=== PATIENT | female | born 1985 | race Caucasian/White ===

== ENCOUNTER 2016-11-15 23:15 | Emergency (ER) | payer MEDICAID ==
[2016-11-16 01:18] VITALS: BP 115/79
== END 2016-11-16 01:18 | disposition home or self-care (01) ==
LOC: ED 23:15
DX: S39.012A Strain of muscle, fascia and tendon of lower back, initial encounter (principal); N39.0 Urinary tract infection, site not specified; Z88.0 Allergy status to penicillin; Z88.1 Allergy status to other antibiotic agents; X58.XXXA Exposure to other specified factors, initial encounter; Y93.89 Activity, other specified; Y99.8 Other external cause status; Y92.89 Other specified places as the place of occurrence of the external cause
CPT/HCPCS: 82962; J1885

== ENCOUNTER 2017-01-15 23:00 | Emergency (ER) | payer MEDICAID ==
[2017-01-16 00:03] LABS: microscopic required? YES; urine erythrocyte NEGATIVE (NEGATIVE)
[2017-01-16 00:03] LABS: BASOPHIL % 0.5 % (0-2); PLATELET COUNT 339 x10^3mcL (130-400)
[2017-01-16 00:07] LABS: RED CELL DISTRIBUTION WIDTH 16.4 % (11.5-14.5)
[2017-01-16 00:08] LABS: CALCIUM 8.6 mg/dL (8.5-10.1); CARBON DIOXIDE 24.7 mmol/L (21-32); CHLORIDE SERUM 105 mmol/L (98-107); CREATININE SERUM 0.7 mg/dL (0.6-1.0); GFR1 > 60 mL/min; GLUCOSE SERUM 84 mg/dL (74-106); POTASSIUM SERUM 3.5 mmol/L (3.5-5.1); SODIUM SERUM 141 mmol/L (136-145)
[2017-01-16 00:12] LABS: ALBUMIN 3.8 g/dL (3.4-5.0); ALKALINE PHOSPHATASE 81 U/L (46-116); ALT/SGPT 16 U/L (14-59); AMYLASE 83 U/L (25-115); AST/SGOT 13 U/L (15-37); BILIRUBIN TOTAL 0.3 mg/dL (0.20-1.00); LIPASE 154 IU/L (73-393); TOTAL PROTEIN, SERUM 7.5 g/dL (6.4-8.2)
[2017-01-16 00:24] LABS: CK-MB < 0.5 ng/mL (0-3.6); CREATINE KINASE 73 U/L (26-192)
[2017-01-16 01:57] VITALS: BP 109/74
== END 2017-01-16 01:57 | disposition home or self-care (01) ==
LOC: ED 23:00
PROVIDERS: Emergency Medicine
DX: N10 Acute pyelonephritis (principal); Z88.0 Allergy status to penicillin; Z79.899 Other long term (current) drug therapy; Z79.01 Long term (current) use of anticoagulants
CPT/HCPCS: 36415; Q0092

== ENCOUNTER 2017-03-20 23:09 | Emergency (ER) | payer OTHER ==
[2017-03-21 00:38] LABS: BASOPHIL % 1.7 % (0-2); PLATELET COUNT 369 x10^3mcL (130-400)
[2017-03-21 00:41] LABS: RED CELL DISTRIBUTION WIDTH 16.3 % (11.5-14.5)
[2017-03-21 00:43] LABS: CALCIUM 8.9 mg/dL (8.5-10.1); CARBON DIOXIDE 28.9 mmol/L (21-32); CHLORIDE SERUM 102 mmol/L (98-107); CREATININE SERUM 0.6 mg/dL (0.6-1.0); GFR1 > 60 mL/min; GLUCOSE SERUM 99 mg/dL (74-106); POTASSIUM SERUM 3.4 mmol/L (3.5-5.1); SODIUM SERUM 140 mmol/L (136-145)
[2017-03-21 00:49] LABS: ALBUMIN 3.9 g/dL (3.4-5.0); ALKALINE PHOSPHATASE 94 U/L (46-116); ALT/SGPT 20 U/L (14-59); AST/SGOT 15 U/L (15-37); BILIRUBIN TOTAL 0.4 mg/dL (0.20-1.00); CHOLESTEROL 144 mg/dL (<200); PHOSPHOROUS 4.6 mg/dL (2.5-4.9); TOTAL PROTEIN, SERUM 8.1 g/dL (6.4-8.2)
[2017-03-21 00:59] LABS: HDL CHOLESTEROL 32 mg/dL (40-60)
[2017-03-21 02:21] VITALS: BP 121/78
== END 2017-03-21 02:21 | disposition home or self-care (01) ==
LOC: ED 23:09
PROVIDERS: Emergency Medicine
DX: K62.5 Hemorrhage of anus and rectum (principal); Z88.0 Allergy status to penicillin
CPT/HCPCS: 36415; J1885

== ENCOUNTER 2017-03-28 02:57 | Emergency (ER) | payer OTHER ==
[2017-03-28 06:58] VITALS: BP 109/59
== END 2017-03-28 05:20 | disposition home or self-care (01) ==
LOC: ED 02:57
DX: I48.91 Unspecified atrial fibrillation (principal); N39.0 Urinary tract infection, site not specified; Z88.0 Allergy status to penicillin; Z88.1 Allergy status to other antibiotic agents
CPT/HCPCS: J7030

== ENCOUNTER 2017-04-05 15:04 | Inpatient (IN) | payer OTHER ==
[~2017-04-05] VITALS: Ht 165.1 cm; Wt 63.5 kg
[2017-04-05 16:06] LABS: BASOPHIL % 0.3 % (0-2); PLATELET COUNT 304 x10^3mcL (130-400)
[2017-04-05 16:07] LABS: RED CELL DISTRIBUTION WIDTH 18.1 % (11.5-14.5)
[2017-04-05] MEDS ORDERED: CIPRO500 MG PO (16:07)
[2017-04-05] MEDS ORDERED: METOPROLOL (16:07)
[2017-04-05] MEDS ORDERED: COUMADIN2.5 MG PO (16:07)
[2017-04-05 16:17] LABS: CALCIUM 8.7 mg/dL (8.5-10.1); CARBON DIOXIDE 29.2 mmol/L (21-32); CHLORIDE SERUM 105 mmol/L (98-107); CREATININE SERUM 0.9 mg/dL (0.6-1.0); GFR1 > 60 mL/min; GLUCOSE SERUM 157 mg/dL (74-106); POTASSIUM SERUM 3.6 mmol/L (3.5-5.1); SODIUM SERUM 141 mmol/L (136-145)
[2017-04-05 16:39] LABS: T3 TOTAL 1.04 ng/mL
[2017-04-05 16:47] LABS: FREE T4 1.15 ng/dL (0.76-1.46); FREE THYROXINE INDEX 2.9 ug/dL (1.4-4.5); T4(THYROXINE) 8.7 ug/dL (4.7-13.3)
[2017-04-05 17:52] LABS: CHOLESTEROL/HDL RATIO 4.4; MAGNESIUM 2.3 mg/dL (1.8-2.4); PHOSPHOROUS 3.5 mg/dL (2.5-4.9)
[2017-04-05 18:45] VITALS: BP 99/77
[2017-04-05 21:10] VITALS: BP 87/67
[2017-04-05 21:27] VITALS: BP 93/71
[2017-04-05 21:52] VITALS: BP 103/66
[2017-04-06 06:14] LABS: CALCIUM 8.3 mg/dL (8.5-10.1); CARBON DIOXIDE 24.8 mmol/L (21-32); CHLORIDE SERUM 110 mmol/L (98-107); CREATININE SERUM 0.6 mg/dL (0.6-1.0); GFR1 > 60 mL/min; GLUCOSE SERUM 99 mg/dL (74-106); POTASSIUM SERUM 3.7 mmol/L (3.5-5.1); SODIUM SERUM 142 mmol/L (136-145)
[2017-04-06 06:36] VITALS: BP 92/65
[2017-04-06 10:00] VITALS: BP 101/71
[2017-04-06 12:38] LABS: microscopic required? YES; urine erythrocyte NEGATIVE (NEGATIVE)
[2017-04-06 12:53] LABS: AMPHETAMINE QUAL UR NONE DETECTED (NEG <=1000)
[2017-04-06 14:05] VITALS: BP 98/71
[2017-04-06 17:35] VITALS: BP 96/62
[2017-04-06 21:54] VITALS: BP 103/70
[2017-04-07 05:58] VITALS: BP 98/63
[2017-04-07 06:07] LABS: BASOPHIL % 0.6 % (0-2); PLATELET COUNT 271 x10^3mcL (130-400)
[2017-04-07 06:42] LABS: RED CELL DISTRIBUTION WIDTH 18.1 % (11.5-14.5)
[2017-04-07 06:51] LABS: CALCIUM 8.4 mg/dL (8.5-10.1); CARBON DIOXIDE 24.1 mmol/L (21-32); CHLORIDE SERUM 108 mmol/L (98-107); CREATININE SERUM 0.6 mg/dL (0.6-1.0); GFR1 > 60 mL/min; GLUCOSE SERUM 96 mg/dL (74-106); MAGNESIUM 2.2 mg/dL (1.8-2.4); PHOSPHOROUS 3.9 mg/dL (2.5-4.9); POTASSIUM SERUM 3.7 mmol/L (3.5-5.1); SODIUM SERUM 140 mmol/L (136-145)
[2017-04-07 09:00] VITALS: BP 99/71
[2017-04-07 14:04] VITALS: BP 107/77
[2017-04-07 16:35] VITALS: BP 107/77
[2017-04-07] MEDS ORDERED: METOPROLOL SUC100 M2 PO (16:50)
[2017-04-07] MEDS ORDERED: LAC PO (16:50)
[2017-04-07 17:56] VITALS: BP 107/73
== END 2017-04-07 18:55 | disposition home or self-care (01) | DRG 201 ==
LOC: ED 15:04 → DU 17:03
PROVIDERS: Emergency Medicine; ADMIT Family Medicine Sports Medicine
DX: I48.91 Unspecified atrial fibrillation (principal); D50.9 Iron deficiency anemia, unspecified; Z79.01 Long term (current) use of anticoagulants; Z88.0 Allergy status to penicillin; Z88.8 Allergy status to other drugs, medicaments and biological substances
CPT/HCPCS: 83880; 84439; J1650; J1885; J1956; J3490; J7030; J7040; Q0092

== ENCOUNTER 2017-05-21 06:19 | Emergency (ER) | payer OTHER ==
[~2017-05-21 06:19] MED LIST: CIPRO500 MG PO; COUMADIN2.5 MG PO; LAC PO; METOPROLOL; METOPROLOL SUC100 M2 PO
[2017-05-21 07:40] LABS: BASOPHIL % 0.7 % (0-2); PLATELET COUNT 398 x10^3mcL (130-400)
[2017-05-21 07:47] LABS: CALCIUM 8.5 mg/dL (8.5-10.1); CARBON DIOXIDE 26.8 mmol/L (21-32); CHLORIDE SERUM 104 mmol/L (98-107); CREATININE SERUM 0.6 mg/dL (0.6-1.0); GFR1 > 60 mL/min; GLUCOSE SERUM 92 mg/dL (74-106); POTASSIUM SERUM 4.2 mmol/L (3.5-5.1); SODIUM SERUM 138 mmol/L (136-145)
[2017-05-21 07:52] LABS: ALKALINE PHOSPHATASE 90 U/L (46-116); ALT/SGPT 24 U/L (14-59); AST/SGOT 17 U/L (15-37); BILIRUBIN TOTAL 0.3 mg/dL (0.20-1.00); TOTAL PROTEIN, SERUM 7.2 g/dL (6.4-8.2)
[2017-05-21 07:53] LABS: ALBUMIN 3.3 g/dL (3.4-5.0)
[2017-05-21 08:30] LABS: AMPHETAMINE QUAL UR NONE DETECTED (NEG <=1000)
[2017-05-21 08:54] LABS: RED CELL DISTRIBUTION WIDTH 17.9 % (11.5-14.5)
[2017-05-21 10:58] VITALS: BP 112/76
== END 2017-05-21 10:58 | disposition home or self-care (01) ==
LOC: ED 06:19
PROVIDERS: Emergency Medicine
DX: R07.89 Other chest pain (principal); D68.32 Hemorrhagic disorder due to extrinsic circulating anticoagulants; Z95.2 Presence of prosthetic heart valve; Z88.0 Allergy status to penicillin; Z88.8 Allergy status to other drugs, medicaments and biological substances
CPT/HCPCS: 83880; Q0092

== ENCOUNTER 2017-06-15 19:38 | Emergency (ER) | payer OTHER ==
[~2017-06-15] VITALS: Ht 157.5 cm; Wt 68.0 kg
[2017-06-15 19:47] VITALS: Ht 157.5 cm; Wt 68.0 kg
[2017-06-15 23:04] VITALS: BP 124/68
== END 2017-06-15 22:04 | disposition home or self-care (01) ==
LOC: ED 19:38
DX: G44.209 Tension-type headache, unspecified, not intractable (principal); J06.9 Acute upper respiratory infection, unspecified; J01.90 Acute sinusitis, unspecified; Z88.0 Allergy status to penicillin; Z88.1 Allergy status to other antibiotic agents

== ENCOUNTER 2017-07-23 09:31 | Emergency (ER) | payer OTHER ==
[2017-07-23 10:39] VITALS: BP 106/73
== END 2017-07-23 10:39 | disposition home or self-care (01) ==
LOC: ED 09:31
DX: R07.89 Other chest pain (principal); I48.91 Unspecified atrial fibrillation; Z79.01 Long term (current) use of anticoagulants; Z88.0 Allergy status to penicillin; Z88.1 Allergy status to other antibiotic agents

== ENCOUNTER 2017-08-28 19:01 | Emergency (ER) | payer OTHER ==
[~2017-08-28] VITALS: Ht 162.6 cm; Wt 73.0 kg
[2017-08-28 19:07] VITALS: Ht 162.6 cm; Wt 73.0 kg
[2017-08-28 21:32] VITALS: BP 104/67
== END 2017-08-28 21:32 | disposition home or self-care (01) ==
LOC: ED 19:01
DX: R07.89 Other chest pain (principal); M54.6 Pain in thoracic spine; I48.91 Unspecified atrial fibrillation; Z88.0 Allergy status to penicillin; Z88.1 Allergy status to other antibiotic agents

== ENCOUNTER 2017-08-29 19:16 | Emergency (ER) | payer OTHER ==
[~2017-08-29] VITALS: Ht 152.4 cm; Wt 73.1 kg
[2017-08-29 20:07] VITALS: Ht 152.4 cm; Wt 73.1 kg
[2017-08-30 00:18] VITALS: BP 98/68
== END 2017-08-30 00:18 | disposition home or self-care (01) ==
LOC: ED 19:16
DX: J40 Bronchitis, not specified as acute or chronic (principal); J06.9 Acute upper respiratory infection, unspecified; Z95.2 Presence of prosthetic heart valve; Z88.0 Allergy status to penicillin; Z88.1 Allergy status to other antibiotic agents
CPT/HCPCS: 87804; J0780; J7613

== ENCOUNTER 2017-10-11 23:30 | Emergency (ER) | payer OTHER ==
[~2017-10-11] VITALS: Ht 154.9 cm; Wt 75.5 kg
[2017-10-12] VITALS: Ht 154.9 cm; Wt 75.5 kg
[2017-10-12 01:37] VITALS: BP 109/76
== END 2017-10-12 01:37 | disposition home or self-care (01) ==
LOC: ED 23:30
DX: G44.209 Tension-type headache, unspecified, not intractable (principal); M62.830 Muscle spasm of back; M62.838 Other muscle spasm; Z88.0 Allergy status to penicillin; Z88.1 Allergy status to other antibiotic agents; Z86.79 Personal history of other diseases of the circulatory system
CPT/HCPCS: J2001

== ENCOUNTER 2018-01-11 00:24 | Emergency (ER) | payer OTHER ==
[~2018-01-11] VITALS: Ht 154.9 cm; Wt 75.7 kg
[~2018-01-11 00:24] MED LIST changes: +COU10 PO; +GOOD SENSE OMEP20 MG PO; +LEVAQUIN500 M1 PO; +LOPRESSOR50 M1 PO; +TOP50 PO
[2018-01-11 00:29] VITALS: Ht 154.9 cm; Wt 75.7 kg
[2018-01-11 01:24] LABS: BASOPHIL % 0.9 % (0-2); PLATELET COUNT 340 x10^3mcL (130-400)
[2018-01-11 01:25] LABS: RED CELL DISTRIBUTION WIDTH 18.5 % (11.5-14.5)
[2018-01-11 01:42] LABS: CALCIUM 8.7 mg/dL (8.5-10.1); CARBON DIOXIDE 24.3 mmol/L (21-32); CHLORIDE SERUM 106 mmol/L (98-107); CREATININE SERUM 0.8 mg/dL (0.6-1.0); GFR1 > 60 mL/min; GLUCOSE SERUM 97 mg/dL (74-106); POTASSIUM SERUM 3.3 mmol/L (3.5-5.1); SODIUM SERUM 141 mmol/L (136-145)
[2018-01-11 01:45] LABS: ALBUMIN 3.5 g/dL (3.4-5.0); ALKALINE PHOSPHATASE 88 U/L (46-116); ALT/SGPT 30 U/L (14-59); AST/SGOT 21 U/L (15-37); BILIRUBIN TOTAL 0.38 mg/dL (0.20-1.00); TOTAL PROTEIN, SERUM 7.1 g/dL (6.4-8.2)
[2018-01-11 04:05] VITALS: BP 127/77
== END 2018-01-11 03:55 | disposition home or self-care (01) ==
LOC: ED 00:24
PROVIDERS: Emergency Medicine
DX: N93.9 Abnormal uterine and vaginal bleeding, unspecified (principal); D64.9 Anemia, unspecified; Z88.0 Allergy status to penicillin; Z88.1 Allergy status to other antibiotic agents
CPT/HCPCS: 36415

== ENCOUNTER 2018-01-14 16:23 | Emergency (ER) | payer OTHER ==
[~2018-01-14] VITALS: Ht 154.9 cm; Wt 74.4 kg
[2018-01-14 16:46] VITALS: Ht 154.9 cm; Wt 74.4 kg
[2018-01-14 18:00] LABS: BASOPHIL % 0.5 % (0-2); PLATELET COUNT 355 x10^3mcL (130-400)
[2018-01-14 18:04] LABS: RED CELL DISTRIBUTION WIDTH 18.7 % (11.5-14.5)
[2018-01-14 18:09] LABS: CALCIUM 8.7 mg/dL (8.5-10.1); CARBON DIOXIDE 27.5 mmol/L (21-32); CHLORIDE SERUM 106 mmol/L (98-107); CREATININE SERUM 0.9 mg/dL (0.6-1.0); GFR1 > 60 mL/min; GLUCOSE SERUM 87 mg/dL (74-106); POTASSIUM SERUM 3.2 mmol/L (3.5-5.1); SODIUM SERUM 141 mmol/L (136-145)
[2018-01-14 18:15] LABS: ALBUMIN 3.6 g/dL (3.4-5.0); ALKALINE PHOSPHATASE 84 U/L (46-116); ALT/SGPT 27 U/L (14-59); AST/SGOT 21 U/L (15-37); BILIRUBIN TOTAL 0.41 mg/dL (0.20-1.00)
[2018-01-14 19:04] VITALS: BP 124/90
== END 2018-01-14 19:04 | disposition home or self-care (01) ==
LOC: ED 16:23
PROVIDERS: Emergency Medicine
DX: D64.9 Anemia, unspecified (principal); N92.6 Irregular menstruation, unspecified; I49.9 Cardiac arrhythmia, unspecified
CPT/HCPCS: 36415; Q0092

== ENCOUNTER 2018-02-09 22:31 | Inpatient (IN) | payer OTHER ==
[~2018-02-09] VITALS: Ht 172.7 cm; Wt 78.0 kg
[2018-02-09 22:36] VITALS: Ht 172.7 cm; Wt 78.0 kg
[2018-02-09 23:42] LABS: BASOPHIL % 0.8 % (0-2)
[2018-02-09 23:44] LABS: PLATELET COUNT 484 x10^3mcL (130-400); RED CELL DISTRIBUTION WIDTH 17.9 % (11.5-14.5)
[2018-02-09 23:46] LABS: CALCIUM 8.6 mg/dL (8.5-10.1); CARBON DIOXIDE 23.1 mmol/L (21-32); CHLORIDE SERUM 106 mmol/L (98-107); CREATININE SERUM 0.8 mg/dL (0.6-1.0); GFR1 > 60 mL/min; GLUCOSE SERUM 116 mg/dL (74-106); POTASSIUM SERUM 3.5 mmol/L (3.5-5.1); SODIUM SERUM 141 mmol/L (136-145)
[2018-02-09 23:55] LABS: ALBUMIN 3.5 g/dL (3.4-5.0); ALKALINE PHOSPHATASE 82 U/L (46-116); ALT/SGPT 29 U/L (14-59); AST/SGOT 26 U/L (15-37); BILIRUBIN TOTAL 0.4 mg/dL (0.20-1.00); TOTAL PROTEIN, SERUM 7.1 g/dL (6.4-8.2)
[2018-02-10] VITALS (7 sets, daily range): BP systolic 91–107; BP diastolic 55–73
[2018-02-10 02:00] LABS: MAGNESIUM 2.3 mg/dL (1.8-2.4); PHOSPHOROUS 2.8 mg/dL (2.5-4.9)
[2018-02-10 02:01] LABS: CHOLESTEROL/HDL RATIO 4.2
[2018-02-10 02:04] LABS: T3 TOTAL 1.17 ng/mL
[2018-02-10 02:33] LABS: RED BLOOD CELLS 3.86 M/mm3 (4.10-5.10)
[2018-02-10 02:45] LABS: IRON 12 ug/dL (50-170); TOTAL IRON BINDING CAPACITY 485 ug/dL (250-450)
[2018-02-10 03:09] LABS: FREE T4 0.99 ng/dL (0.76-1.46); FREE THYROXINE INDEX 2.6 ug/dL (1.4-4.5); T4(THYROXINE) 7.8 ug/dL (4.7-13.3)
[2018-02-10 06:25] LABS: BASOPHIL % 0.3 % (0-2)
[2018-02-10 06:53] LABS: PLATELET COUNT 439 x10^3mcL (130-400); RED CELL DISTRIBUTION WIDTH 20.1 % (11.5-14.5); rbc morphology (normal/abnorm) ABNORMAL (NORMAL)
[2018-02-10 07:06] LABS: CALCIUM 8.2 mg/dL (8.5-10.1); CARBON DIOXIDE 23.5 mmol/L (21-32); CHLORIDE SERUM 110 mmol/L (98-107); CREATININE SERUM 0.6 mg/dL (0.6-1.0); GFR1 > 60 mL/min; GLUCOSE SERUM 99 mg/dL (74-106); MAGNESIUM 2.3 mg/dL (1.8-2.4); PHOSPHOROUS 3.5 mg/dL (2.5-4.9); POTASSIUM SERUM 3.8 mmol/L (3.5-5.1); SODIUM SERUM 141 mmol/L (136-145)
[2018-02-11 05:50] VITALS: BP 101/69
[2018-02-11 06:29] LABS: CALCIUM 8.4 mg/dL (8.5-10.1); CARBON DIOXIDE 24.9 mmol/L (21-32); CHLORIDE SERUM 107 mmol/L (98-107); CREATININE SERUM 0.6 mg/dL (0.6-1.0); GFR1 > 60 mL/min; GLUCOSE SERUM 93 mg/dL (74-106); MAGNESIUM 2.3 mg/dL (1.8-2.4); PHOSPHOROUS 3.6 mg/dL (2.5-4.9); POTASSIUM SERUM 3.6 mmol/L (3.5-5.1); SODIUM SERUM 140 mmol/L (136-145)
[2018-02-11 06:52] LABS: BASOPHIL % 0.7 % (0-2)
[2018-02-11 07:11] LABS: PLATELET COUNT 439 x10^3mcL (130-400)
[2018-02-11 07:12] LABS: rbc morphology (normal/abnorm) ABNORMAL (NORMAL)
[2018-02-11 08:47] VITALS: BP 103/65
[2018-02-11 13:07] VITALS: BP 107/72
[2018-02-11 17:24] VITALS: BP 113/77
[2018-02-11 21:05] VITALS: BP 105/78
[2018-02-12 05:41] VITALS: BP 117/74
[2018-02-12 06:43] LABS: CARBON DIOXIDE 25.7 mmol/L (21-32); CHLORIDE SERUM 106 mmol/L (98-107); CREATININE SERUM 0.7 mg/dL (0.6-1.0); GFR1 > 60 mL/min; GLUCOSE SERUM 98 mg/dL (74-106); MAGNESIUM 2.5 mg/dL (1.8-2.4); PHOSPHOROUS 4.6 mg/dL (2.5-4.9); POTASSIUM SERUM 3.7 mmol/L (3.5-5.1); SODIUM SERUM 138 mmol/L (136-145)
[2018-02-12 06:50] LABS: BASOPHIL % 0.5 % (0-2)
[2018-02-12 06:52] LABS: PLATELET COUNT 460 x10^3mcL (130-400); RED CELL DISTRIBUTION WIDTH 19.6 % (11.5-14.5)
[2018-02-12 08:48] VITALS: BP 101/73
[2018-02-12] MEDS ORDERED: COU10 PO (10:13)
[2018-02-12 12:20] VITALS: BP 101/73
[2018-02-12 13:20] VITALS: BP 107/73
[2018-02-12 17:28] VITALS: BP 110/78
[2018-02-12 21:10] VITALS: BP 104/71
[2018-02-13 05:30] VITALS: BP 101/70
[2018-02-13 06:23] LABS: BASOPHIL % 0.6 % (0-2)
[2018-02-13 06:36] LABS: CALCIUM 8.3 mg/dL (8.5-10.1); CARBON DIOXIDE 24.4 mmol/L (21-32); CHLORIDE SERUM 106 mmol/L (98-107); CREATININE SERUM 0.7 mg/dL (0.6-1.0); GFR1 > 60 mL/min; GLUCOSE SERUM 101 mg/dL (74-106); MAGNESIUM 2.5 mg/dL (1.8-2.4); PHOSPHOROUS 4.3 mg/dL (2.5-4.9); POTASSIUM SERUM 3.7 mmol/L (3.5-5.1); SODIUM SERUM 142 mmol/L (136-145)
[2018-02-13 07:22] LABS: PLATELET COUNT 461 x10^3mcL (130-400); RED CELL DISTRIBUTION WIDTH 19.8 % (11.5-14.5)
[2018-02-13 09:23] VITALS: BP 97/68
[2018-02-13 13:25] VITALS: BP 97/68
[2018-02-13] MEDS ORDERED: FER300 PO (13:26)
[2018-02-13] MEDS ORDERED: TOP50 PO (13:27)
== END 2018-02-13 16:11 | disposition home or self-care (01) | DRG 663 ==
LOC: ED 22:31 → DU 02-10 00:28
PROVIDERS: Emergency Medicine; Family Medicine; Internal Medicine
PROC: 30233N1 Transfusion of Nonautologous Red Blood Cells into Peripheral Vein, Percutaneous Approach (ICD-10-PCS; principal; 2018-02-10)
DX: D50.9 Iron deficiency anemia, unspecified (principal); D68.59 Other primary thrombophilia; E83.51 Hypocalcemia; I48.0 Paroxysmal atrial fibrillation; D47.3 Essential (hemorrhagic) thrombocythemia; R55 Syncope and collapse; N92.1 Excessive and frequent menstruation with irregular cycle; Z88.0 Allergy status to penicillin; Z88.1 Allergy status to other antibiotic agents; Z95.2 Presence of prosthetic heart valve
CPT/HCPCS: 83880; 84439; J1200; J2765; J7030; J8597; P9016; Q0092; Q0162

== ENCOUNTER 2018-03-05 19:33 | Emergency (ER) | payer OTHER ==
[~2018-03-05] VITALS: Ht 160 cm; Wt 73.0 kg
[~2018-03-05 19:33] MED LIST changes: +FER300 PO
[2018-03-05 19:44] VITALS: Ht 160 cm; Wt 73.0 kg
[2018-03-05 20:49] LABS: BASOPHIL % 0.4 % (0-2)
[2018-03-05 20:51] LABS: PLATELET COUNT 419 x10^3mcL (130-400); RED CELL DISTRIBUTION WIDTH 22.7 % (11.5-14.5)
[2018-03-05 21:03] LABS: rbc morphology (normal/abnorm) ABNORMAL (NORMAL)
[2018-03-05 21:06] LABS: CARBON DIOXIDE 25.3 mmol/L (21-32); CHLORIDE SERUM 105 mmol/L (98-107); CREATININE SERUM 0.9 mg/dL (0.6-1.0); GFR1 > 60 mL/min; GLUCOSE SERUM 97 mg/dL (74-106); POTASSIUM SERUM 3.4 mmol/L (3.5-5.1); SODIUM SERUM 137 mmol/L (136-145)
[2018-03-05 21:10] LABS: ALBUMIN 3.9 g/dL (3.4-5.0); ALKALINE PHOSPHATASE 97 U/L (46-116); ALT/SGPT 33 U/L (14-59); AST/SGOT 29 U/L (15-37); BILIRUBIN TOTAL 0.51 mg/dL (0.20-1.00); LIPASE 113 IU/L (73-393)
[2018-03-05 23:19] VITALS: BP 114/76
== END 2018-03-05 23:19 | disposition home or self-care (01) ==
LOC: ED 19:33
PROVIDERS: Emergency Medicine
DX: M54.2 Cervicalgia (principal); M62.838 Other muscle spasm; R07.89 Other chest pain; M79.602 Pain in left arm; I48.91 Unspecified atrial fibrillation; Z98.890 Other specified postprocedural states; Z88.0 Allergy status to penicillin; Z88.1 Allergy status to other antibiotic agents
CPT/HCPCS: 36415; J1885; Q0092

== ENCOUNTER 2018-04-15 23:16 | Emergency (ER) | payer OTHER ==
[~2018-04-15] VITALS: Ht 154.9 cm; Wt 73.5 kg
[2018-04-16 00:33] LABS: BASOPHIL % 0.6 % (0-2); PLATELET COUNT 394 x10^3mcL (130-400)
[2018-04-16 01:13] LABS: CALCIUM 8.6 mg/dL (8.5-10.1); CARBON DIOXIDE 26.7 mmol/L (21-32); CHLORIDE SERUM 105 mmol/L (98-107); CREATININE SERUM 0.6 mg/dL (0.6-1.0); GFR1 > 60 mL/min; GLUCOSE SERUM 99 mg/dL (74-106); POTASSIUM SERUM 3.2 mmol/L (3.5-5.1); SODIUM SERUM 137 mmol/L (136-145)
[2018-04-16 01:18] LABS: ALBUMIN 3.5 g/dL (3.4-5.0); ALKALINE PHOSPHATASE 100 U/L (46-116); ALT/SGPT 34 U/L (14-59); AST/SGOT 26 U/L (15-37); BILIRUBIN TOTAL 0.34 mg/dL (0.20-1.00); TOTAL PROTEIN, SERUM 7.6 g/dL (6.4-8.2)
[2018-04-16 01:22] LABS: RED CELL DISTRIBUTION WIDTH 20.7 % (11.5-14.5)
[2018-04-16 01:57] VITALS: BP 102/66
== END 2018-04-16 01:57 | disposition home or self-care (01) ==
LOC: ED 23:16
PROVIDERS: Emergency Medicine
DX: S60.222A Contusion of left hand, initial encounter (principal); S60.221A Contusion of right hand, initial encounter; S80.12XA Contusion of left lower leg, initial encounter; R07.89 Other chest pain; R58 Hemorrhage, not elsewhere classified; I48.91 Unspecified atrial fibrillation; D64.9 Anemia, unspecified; Z79.01 Long term (current) use of anticoagulants; Z88.0 Allergy status to penicillin; Z88.1 Allergy status to other antibiotic agents; W17.89XA Other fall from one level to another, initial encounter; Y93.89 Activity, other specified; Y92.89 Other specified places as the place of occurrence of the external cause; Y99.8 Other external cause status
CPT/HCPCS: 36415; Q0092

== ENCOUNTER 2018-05-20 06:49 | Emergency (ER) | payer OTHER ==
[~2018-05-20] VITALS: Ht 154.9 cm; Wt 72.2 kg
[2018-05-20 06:54] VITALS: Ht 154.9 cm; Wt 72.2 kg
[2018-05-20 07:52] VITALS: BP 105/68
== END 2018-05-20 07:52 | disposition home or self-care (01) ==
LOC: ED 06:49
DX: K52.9 Noninfective gastroenteritis and colitis, unspecified (principal); I49.9 Cardiac arrhythmia, unspecified; I48.91 Unspecified atrial fibrillation; Z95.2 Presence of prosthetic heart valve; Z88.0 Allergy status to penicillin; Z88.1 Allergy status to other antibiotic agents; Z86.2 Personal history of diseases of the blood and blood-forming organs and certain disorders involving the immune mechanism

== ENCOUNTER 2018-08-08 16:18 | Emergency (ER) | payer OTHER ==
[~2018-08-08] VITALS: Ht 152.4 cm; Wt 72.6 kg
[2018-08-08 16:32] VITALS: Ht 152.4 cm; Wt 72.6 kg
[2018-08-08 18:29] LABS: BASOPHIL % 0.6 % (0-2); PLATELET COUNT 373 x10^3mcL (130-400)
[2018-08-08 18:43] LABS: CALCIUM 8.4 mg/dL (8.5-10.1); CARBON DIOXIDE 25.3 mmol/L (21-32); CHLORIDE SERUM 105 mmol/L (98-107); CREATININE SERUM 0.8 mg/dL (0.6-1.0); GFR1 > 60 mL/min; GLUCOSE SERUM 83 mg/dL (74-106); POTASSIUM SERUM 3.7 mmol/L (3.5-5.1); SODIUM SERUM 141 mmol/L (136-145)
[2018-08-08 18:48] LABS: ALBUMIN 3.6 g/dL (3.4-5.0); ALKALINE PHOSPHATASE 106 U/L (46-116); ALT/SGPT 34 U/L (14-59); AST/SGOT 29 U/L (15-37); BILIRUBIN TOTAL 0.29 mg/dL (0.20-1.00); TOTAL PROTEIN, SERUM 7.5 g/dL (6.4-8.2)
[2018-08-08 21:12] VITALS: BP 122/70
== END 2018-08-08 21:12 | disposition home or self-care (01) ==
LOC: ED 16:18
PROVIDERS: Emergency Medicine
DX: N93.9 Abnormal uterine and vaginal bleeding, unspecified (principal); D64.9 Anemia, unspecified; I49.9 Cardiac arrhythmia, unspecified; I48.91 Unspecified atrial fibrillation; Z88.1 Allergy status to other antibiotic agents; Z88.0 Allergy status to penicillin; Z95.4 Presence of other heart-valve replacement
CPT/HCPCS: 36415; Q0162

== ENCOUNTER 2018-11-01 22:42 | Emergency (ER) | payer OTHER ==
[~2018-11-01] VITALS: Ht 154.9 cm; Wt 74.4 kg
[2018-11-01 22:51] VITALS: Ht 154.9 cm; Wt 74.4 kg
[2018-11-02 01:57] LABS: BASOPHIL % 0.4 % (0-2)
[2018-11-02 02:00] LABS: PLATELET COUNT 423 x10^3mcL (130-400)
[2018-11-02 02:03] LABS: CALCIUM 8.6 mg/dL (8.5-10.1); CARBON DIOXIDE 25.4 mmol/L (21-32); CHLORIDE SERUM 104 mmol/L (98-107); CREATININE SERUM 0.7 mg/dL (0.6-1.0); GFR1 > 60 mL/min; GLUCOSE SERUM 99 mg/dL (74-106); POTASSIUM SERUM 3.6 mmol/L (3.5-5.1); SODIUM SERUM 138 mmol/L (136-145)
[2018-11-02 02:08] LABS: ALBUMIN 3.8 g/dL (3.4-5.0); ALKALINE PHOSPHATASE 107 U/L (46-116); ALT/SGPT 51 U/L (14-59); AST/SGOT 36 U/L (15-37); BILIRUBIN TOTAL 0.5 mg/dL (0.20-1.00); TOTAL PROTEIN, SERUM 7.8 g/dL (6.4-8.2)
[2018-11-02 02:22] LABS: rbc morphology (normal/abnorm) ABNORMAL (NORMAL)
[2018-11-02 02:23] LABS: ovalocyte/elliptocyte 1+
[2018-11-02 02:42] VITALS: BP 130/82
== END 2018-11-02 02:42 | disposition home or self-care (01) ==
LOC: ED 22:42
PROVIDERS: Emergency Medicine
DX: R07.89 Other chest pain (principal); I48.91 Unspecified atrial fibrillation; I49.9 Cardiac arrhythmia, unspecified; Z95.2 Presence of prosthetic heart valve; Z88.0 Allergy status to penicillin; Z88.1 Allergy status to other antibiotic agents
CPT/HCPCS: 36415; 83880; J1885; Q0092

== ENCOUNTER 2019-02-10 21:38 | Inpatient (IN) | payer OTHER ==
[~2019-02-10] VITALS: Ht 154.9 cm; Wt 71.7 kg
--- NOTE | 2019-02-10 21:49 | NUR ---
PT SENT TO LOBBY TO WAIT FOR AVAILABLE BED. NO DISTRESS NOTED AT THIS TIME. PT ALERT AND ORIENTED
--- NOTE | 2019-02-11 00:14 | NUR ---
PATIENT AAOX4 PRESENTS TO THE ED WITH C/O ABD PAIN ALONG WITH N/V X 3 DAYS. BREATHING E/U SKIN WARM, DRY AND INTACT. WILL CONTINUE TO MONITOR.
--- NOTE | 2019-02-11 00:15 | NUR ---
PATIENT IN BATHROOM PROVIDING URINE SAMPLE.
[2019-02-11 00:36] LABS: BASOPHIL % 0.6 % (0-2)
[2019-02-11 00:41] LABS: PLATELET COUNT 405 x10^3mcL (130-400); RED CELL DISTRIBUTION WIDTH 19.9 % (11.5-14.5)
--- NOTE | 2019-02-11 01:42 | NUR ---
PATIENT SLEEPING ON GURNEY- EASILY AROUSABLE. SYMMETRIC CHEST RISE AND FALL, NAD NOTED. WILL CONTINUE TO MONITOR.
--- NOTE | 2019-02-11 02:20 | NUR ---
ASSISTED DR CHÁVEZ DURING PELVIC EXAM.
--- NOTE | 2019-02-11 03:39 | NUR ---
STARTED NS PER MD ORDERS, SEE EMAR
--- NOTE | 2019-02-11 04:30 | NUR ---
PATIENT LYING ON GURNEY RESTING WITH EYES CLOSED. BREATHING E/U, NO OTHER SS OF DISTRESS NOTED.
[2019-02-11 04:33] LABS: AMYLASE 58 U/L (25-115); CALCIUM 8.9 mg/dL (8.5-10.1); CARBON DIOXIDE 25.5 mmol/L (21-32); CHLORIDE SERUM 104 mmol/L (98-107); CHOLESTEROL 115 mg/dL (<200); CHOLESTEROL/HDL RATIO 4.4; CREATININE SERUM 0.6 mg/dL (0.6-1.0); GFR1 > 60 mL/min; GLUCOSE SERUM 84 mg/dL (74-106); HDL CHOLESTEROL 26 mg/dL (40-60); LIPASE 83 IU/L (73-393); MAGNESIUM 2.5 mg/dL (1.8-2.4); POTASSIUM SERUM 3.6 mmol/L (3.5-5.1); SODIUM SERUM 140 mmol/L (136-145); TRIGLYCERIDES 157 mg/dL (<150)
[2019-02-11 04:36] LABS: T3 TOTAL 1.26 ng/mL
[2019-02-11 04:40] LABS: FREE T4 0.97 ng/dL (0.76-1.46); FREE THYROXINE INDEX 2.8 ug/dL (1.4-4.5); T4(THYROXINE) 8.9 ug/dL (4.7-13.3)
--- NOTE | 2019-02-11 04:41 | NUR ---
PROVIDED REPORT TO SYLWIA HIGGINBOTHAM FOR FURTHER CARE OF PATIENT.
--- NOTE | 2019-02-11 04:52 | NUR ---
RECEIVED PT FROM ER VIA [place], PT ABLE TO AMBULATE TO BED ON OWN STRENGTH. MINIMAL DIZZINESS UPON AMBULATION. PT C/O VOMITING X4, NONBLOODY. 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 PT REPORTS BEING ON COUMADIN FOR THIS DX. PT REPORTS GOING TO GET LAB WORK DONE EVERY WEEK OR EVERY TWO WEEKS TO MONITOR INR. DENIES CP. AOX4, MINIMAL SHEN/DIZZINESS, DENIES THE NEED FOR PAIN MEDS FOR SHEN. TELE #20 SR 80, DENIES CP. PULSES PALPABLE BILAT, DENIES NUMBNESS/TINGLING IN FINGER TIPS/TOES/LIPS/FACE. PT REPORTS HAVING BLOOD TRANSFUSION IN PAST X2 DUE TO ANEMIA WITH NO REACTION. RESP EVEN AND UNLABORED ON RA, DENIES SOB. ABD SOFT, ROUND, DENIES ABD PAIN. PT VOIDS FREELY W/O DYSURIA. PT REPORTS HEAVY MENSTRAUL PERIOD X2 WEEKS, WITH SOME BLOOD CLOTS. PT REPORTS SATURATING 2 PADS. PT DENIES IN PAST. PT AMBULATORY, DENIES HX OF FALLS. SKIN INTACT, COLOR APPROPRIATE FOR ETHNICITY. IV SITE TO THE [facility] PATENT, NS @ 150ML/HR. NO REDNESS, SWELLING OR PAIN NOTED. ALL COMFORT AND SAFETY MEASURES PROVIDED FOR, CALL LIGHT WITHIN REACH, BED IN LOWEST POSITION, WILL CONTINUE TO MONITOR. [place] BOILERMAKER'S ASSISTANT PHONE USED RAINER #[id number], ALL QUESITONS AND CONCERNS ADDRESSED, PT ORIENTED TO ROOM AND CALL LIGHT, BED IN LOWEST POSITION, WILL OBTAIN CONSENT FOR BLOOD TRANSFUSION.
[2019-02-11 05:00] VITALS: BP 101/66
--- NOTE | 2019-02-11 06:55 | NUR ---
PT RESTED IN INTERVALS AFTER ADMISSION, DENIES THE NEED FOR PAIN MEDS FOR THE SHEN OR BILAT KNEE PAIN (JOINT PAIN). PT PREMEDICATED WITH TYLENOL AND BENADRYL AND CONSENT SIGNED FOR PT TO RECIEVED 1 UNITS PRBCS. PT DENIES CP/SOB DURING SHIFT. IV SITE REMAINS PATENT TO RAC, NS @ 100ML/HR. NO REDNESS, SWELLING OR PAIN NOTED. PT BLOOD READY, TUBING PRIMED AND READY TO BE INFUSED, WILL ENDORSE TO DAYSWYFT NURSE TO START TRANSFUSION. ALL COMFORT AND SAFETY MEASURES PROVIDED FOR, CALL LIGHT WITHIN REACH, BED IN LOWEST POSITION. ALL COMFORT AND SAFETY MEASURES PROVIDED FOR.
--- NOTE | 2019-02-11 07:40 | NUR ---
RECEIVED PT IN BED. ASSESSED AND DOCUMENTED. DENIES ANY PAIN. PT SAID SHE STILL HAVING VAGINAL BLEEDING BUT LESS NOW. DOCTOR AWARE. WILL GIVE PRBC TRANSFUSION. AT BEDSIDE. SAFTEY PRECAUTIONS ARE IN PLACE. WILL MONITOR.
[2019-02-11 08:21] LABS: ALKALINE PHOSPHATASE 75 U/L (46-116); ALT/SGPT 33 U/L (14-59); AST/SGOT 20 U/L (15-37); BILIRUBIN TOTAL 0.48 mg/dL (0.20-1.00); CALCIUM 8.4 mg/dL (8.5-10.1); CARBON DIOXIDE 24.5 mmol/L (21-32); CHLORIDE SERUM 108 mmol/L (98-107); CREATININE SERUM 0.7 mg/dL (0.6-1.0); GFR1 > 60 mL/min; GLUCOSE SERUM 97 mg/dL (74-106); POTASSIUM SERUM 3.5 mmol/L (3.5-5.1); SODIUM SERUM 140 mmol/L (136-145); TOTAL PROTEIN, SERUM 6.5 g/dL (6.4-8.2)
[2019-02-11 08:22] LABS: ALBUMIN 3.2 g/dL (3.4-5.0)
[2019-02-11 09:25] VITALS: BP 102/72
--- NOTE | 2019-02-11 10:45 | NUR ---
BLOOD TRANSFUSION STARTED. VITAL SIGNS STABLE. STAYED WITH PT FOR 15MIN AND NO ADVERSE REACTIONS SEEN. VITAL SIGNS STILL STABLE AFTER 15MIN OF TRANSFUSION. RECORDED IN THE BLOOD CHART. PT IS STABLE. AT BEDSIDE. DENIES ANY PAIN.
--- NOTE | 2019-02-11 13:00 | NUR ---
IS AWARE ABOUT PT HAVING STILL SOME VAGINAL BLEEDING AND INR=2.9. HE SAID HE WILL DC COUMADIN FOR TODAY AND START FROM TOMORROW.
[2019-02-11 13:52] VITALS: BP 117/79
--- NOTE | 2019-02-11 14:00 | NUR ---
BLOOD TRANSFUSION FINISHED. VITAL SIGNS STABLE. NO ADVERSE REACTIONS NOTED. STABLE. DENIES ANY PAIN. LASIX PO GIVEN ORDERED.
--- NOTE | 2019-02-11 15:00 | NUR ---
INFORMED DR.OCCONEL GREGORY ABOUT PT AMMONIA LEVEL IS HIGH 61. SHE SAID SHE WILL REPEAT THE TEST. PT IS A/O X4. STABLE.
[2019-02-11 15:42] LABS: BASOPHIL % 0.6 % (0-2); PLATELET COUNT 356 x10^3mcL (130-400)
[2019-02-11 15:45] LABS: RED CELL DISTRIBUTION WIDTH 24.1 % (11.5-14.5)
[2019-02-11 16:28] LABS: rbc morphology (normal/abnorm) ABNORMAL (NORMAL)
[2019-02-11 18:04] VITALS: BP 106/76
--- NOTE | 2019-02-11 19:25 | NUR ---
PT RESTING IN BED COMFORTABLY. DENIES ANY PAIN. STABLE. GAVE REPORT TO BOND ANALYST NURSE.
--- NOTE | 2019-02-11 19:40 | NUR ---
RECEIVED REPORT FROM DAY SHIFT RN. PT RESTING IN BED. AA&O X4. NO SOB ON ROOM AIR. NO C/O N/V/PAIN. NO DISTRESS NOTED. IV TO RFA, NS INFUSING. PT STATES SHE STILL HAS VAGINAL BLEEDING, CHANGED PADS X3 DURING THE DAY. . SAFETY MEASURES IN PLACE. BED IN LOWEST POSITION. SIDE RAILS UP X2. INSTRUCTED PT TO USE THE CALL LIGHT FOR ASSISTANCE. CALL LIGHT WITHIN REACH. AT BEDSIDE.
[2019-02-11 20:34] VITALS: BP 101/68
[2019-02-12 05:12] VITALS: BP 105/65
[2019-02-12 06:39] LABS: AMPHETAMINE QUAL UR NONE DETECTED (See below)
--- NOTE | 2019-02-12 06:44 | NUR ---
PT SLEPT AT LONG INTERVALS DURING SHIFT. NO SOB ON ROOM AIR. BREATHING EVEN AND UNLABORED. NO C/O N/V/DIZZINESS. DENEIS PAIN. PER PT CHANGED PADS X1 THROUGHOUT THE NIGHT. VAGINAL BLEEDING LESSER. SAFETY MEASURES MAINTAINED. CALL LIGHT WITHIN REACH. AT BEDSIDE.
[2019-02-12 07:00] LABS: BASOPHIL % 0.7 % (0-2); PLATELET COUNT 350 x10^3mcL (130-400)
[2019-02-12 07:13] LABS: CALCIUM 8.4 mg/dL (8.5-10.1); CARBON DIOXIDE 23.5 mmol/L (21-32); CHLORIDE SERUM 108 mmol/L (98-107); CREATININE SERUM 0.7 mg/dL (0.6-1.0); GFR1 > 60 mL/min; GLUCOSE SERUM 98 mg/dL (74-106); POTASSIUM SERUM 3.8 mmol/L (3.5-5.1); SODIUM SERUM 141 mmol/L (136-145)
[2019-02-12 07:21] LABS: rbc morphology (normal/abnorm) ABNORMAL (NORMAL)
--- NOTE | 2019-02-12 07:30 | NUR ---
PT IS AAOX4. LUNG SOUNDS CTA. ON R/A. TELE [address] READING NSR. ABDOMEN SOFT, NONDISTENDED. BOWEL SOUNDS ACTIVE X4 QUADS. SKIN CDI. NO EDEMA NOTED. PERIPHERAL PULSES PALPABLE. IVF RUNNING TO [facility], SITE WNL. PT STATES SHE STILL HAS VAGINAL BLEEDING BUT IT HAS IMPROVED, NOTING PAD ONLY NEED TO BE CHANGE ONCE THROUGHOUT THE NIGHT. PT DENIES PAIN AT THIS TIME. AT BEDSIDE. CALL LIGHT WITHIN REACH. BED IN LOWEST POSITION.
[2019-02-12 07:35] VITALS: BP 102/66
[2019-02-12 07:41] LABS: UA SPECIFIC GRAVITY 1.015 (1.005-1.035); microscopic required? YES; urine erythrocyte 3+ (NEGATIVE)
--- NOTE | 2019-02-12 09:34 | NUR ---
PT RECEIVING U/S OF PELVIS AT THIS TIME. TYLENOL 650MG PO GIVEN FOR PELVIC AND HEAD PAIN 11/08. EXTRA FLUIDS GIVEN. PT REPOSITIONED FOR COMFORT. RESP EVEN AND UNLABORED. CALL LIGHT WITHIN REACH. AT BEDSIDE.
[2019-02-12 11:50] VITALS: BP 107/74
--- NOTE | 2019-02-12 12:20 | NUR ---
PT IS AAOX4. LUNG SOUNDS CTA. ON R/A. TELE [address] READING NSR. ABDOMEN SOFT, NONDISTENDED. BOWEL SOUNDS ACTIVE X4 QUADS. SKIN CDI. NO EDEMA NOTED. PERIPHERAL PULSES PALPABLE. IVF RUNNING TO [facility], SITE WNL. PT STATES SHE STILL HAS VAGINAL BLEEDING BUT IT HAS IMPROVED, NOTING PAD ONLY NEED TO BE CHANGE ONCE THROUGHOUT THE NIGHT. PT DENIES PAIN AT THIS TIME. AT BEDSIDE. CALL LIGHT WITHIN REACH. BED IN LOWEST POSITION.
--- NOTE | 2019-02-12 12:25 | NUR ---
PT IS SLEEPING IN BED BUT EASILY AROUSABLE. RESP EVEN AND UNLABORED. NO DISTRESS NOTED. CALL LIGHT WITHIN REACH. AT BEDSIDE.
--- NOTE | 2019-02-12 15:30 | NUR ---
IV FLUIDS REPLENISHED. PT SITTING UP AT BESIDE TALKING ON PHONE. RESP EVEN AND UNLABORED. DENIES ABDOMEN, PELVIC PAIN AT THIS TIME. CALL LIGTH WITHIN REACH.
[2019-02-12 16:20] VITALS: BP 126/85
--- NOTE | 2019-02-12 17:01 | NUR ---
TYLENOL 650MG PO FOR ABDOMINAL PAIN 10/09. EXTRA FLUIDS GIVEN. BENADYL PO GIVEN PRE BLOOD TRANSFUSION. RESP EVEN AND UNLABORED. NO DISTRESS NOTED. CALL LIGHT WITHIN REACH. AT BESIDE.
[2019-02-12 17:55] VITALS: BP 100/68
--- NOTE | 2019-02-12 17:55 | NUR ---
ONE UNIT PRBC STARTED. PT EDUCATED TO REPORT S/S OF ITCHING, CHILLS, FLANK PAIN, FEVER. PT VERBALIZED UNDERSTANDING. VS: T 98.2, HR 93, RR 20, BP 100/68. PT DENIES PAIN, DISCOMFORT, ITCHING, CHILLS, FLANK PAIN A THIS TIME. WILL CONTINUE TO MONITOR.
--- NOTE | 2019-02-12 18:10 | NUR ---
15 MIN S/P INITIAL BLOOD TRANSFUSION VS: 98.4, 95, 20, 111/88, 99% ON R/A. PT DENIES FLANK PAIN, ITCHING, FEVER AND CHILLS. RESP EVEN AND UNLABORED. NO DISTRESS NOTED. TELE [address] READING NSR[address] V CATH TO RFA WITH BLOOD PRODUCT RUNNING. SITE WNL. NO S/S OF INFECTION OR INFILTRATION NOTED. FAMILY AT BEDSIDE. WILL ENDORSE ALL CARE TO NOC RN.
--- NOTE | 2019-02-12 19:40 | NUR ---
RECIEVED PT FROM SYLWIA MONTES DE OCA. PT IS A/O X4. REPSONDS TO VERBAL COMMANDS. TELE #20 SR HR 98. PT DENIES ANY SOB OR CHEST PAIN AT THIS TIME. PT PULSES ARE PALPABLE, NO EDEMA NOTED. PT LUNG SOUNDS CLEAR BILATERALLY, BREATHING EVEN AND UNLABORED. LAST BM WAS 02/12. ACTIVE BOWEL SOUNDS. PT VOIDS REGULARLY, X2 PAD CHANGES TODAY, NO CLOTS PRESENT, LIGHT PINK IN COLOR. PT IS ABLE TO AMBULATE. PT DENIES ANY PAIN AT THIS TIME. PT IV TO CDI. NO SWELLING OR REDNESS NOTED. PT IS CURRENTLY RECIEVING BLOOD TRANFSUION, NO ADVERSE REACTIONS NOTED. WILL CONT TO MONITOR. CALL LIGHT WITHIN REACH.
[2019-02-12 20:27] VITALS: BP 120/81
--- NOTE | 2019-02-12 21:20 | NUR ---
PT COMPLETED CLOOD TRANSFUSION, 300 ML. VS 98.2 T, 89 HR, BP 108/71, RESP 18, O2 99%. NO ADVERSE EFFECTS PRESENT. PT DENIES ANY ITCHNESS OR PAIN AT THIS TIME. WILL CONT TO MONITOR, CALL LIGHT WITHIN REACH.
--- NOTE | 2019-02-13 00:30 | NUR ---
PT ASLEEP BED, BREATHING EVEN AND UNLABORED. NO RESP DISTRESS NOTED. CALL LIGHT WITHIN REACH WILL CONT TO MONITOR.
[2019-02-13 05:48] VITALS: BP 104/74
--- NOTE | 2019-02-13 06:12 | NUR ---
PT SLEPT THROUGH THE NIGHT. NO RESP DISTRESS NOTED. PT ON TELE 20 SR. NO CHEST PAIN OR SOB AT THIS TIME. PT DENIES ANY VAGINAL BLEEDING AT THIS TIME. PT CHANGED X1 PAD, NO CLOTS, PINK IN COLOR. IV TO RH INFUSING WELL. PT WAS COOPERATIVE WITH NURSING CARE. WILL ENDORSE CARE TO DAY SHIFT NURSE. NO ACUTE CHANGES.
[2019-02-13 06:23] LABS: BASOPHIL % 0.4 % (0-2); PLATELET COUNT 311 x10^3mcL (130-400)
[2019-02-13 06:28] LABS: CALCIUM 8.7 mg/dL (8.5-10.1); CARBON DIOXIDE 23.2 mmol/L (21-32); CHLORIDE SERUM 104 mmol/L (98-107); CREATININE SERUM 0.6 mg/dL (0.6-1.0); GFR1 > 60 mL/min; GLUCOSE SERUM 91 mg/dL (74-106); MAGNESIUM 2.3 mg/dL (1.8-2.4); PHOSPHOROUS 3.3 mg/dL (2.5-4.9); POTASSIUM SERUM 3.8 mmol/L (3.5-5.1); SODIUM SERUM 140 mmol/L (136-145)
--- NOTE | 2019-02-13 07:10 | NUR ---
RECEIEVED PT FROM RETAIL ROUTE SUPERVISOR RN. DAVIS. TELE#20. DENIES ANY CHEST PAIN/PRESSURE. RESPIRATIONS EQUAL AND UNLABORED ON RA. DENIES ANY SOB. PT DENIES ANY PAIN AT THIS TIME. PT DENIES ANY N/V. PT STATES SHE HAS SOME VAGINAL BLEEDING AT NIGHT USED 1 PAD, SCANT LIGHT PINK. PT DENIES ANY CRAMPING. IV PATENT AND INFUSING TO RH. NO REDNESS OR SWELLING NOTED. FAMILY AT BEDSIDE. WILL CONTINUE TO MONITOR. CALL LIGHT IN REACH. BED IN LOWEST POSITION.
[2019-02-13 07:28] LABS: RED CELL DISTRIBUTION WIDTH 28.6 % (11.5-14.5)
[2019-02-13 07:48] VITALS: BP 104/73
[2019-02-13 09:07] LABS: rbc morphology (normal/abnorm) ABNORMAL (NORMAL)
--- NOTE | 2019-02-13 09:15 | NUR ---
PT IN BED RESTING. NO ACUTE RESP DISTRESS NOTED ON RA. DENIES SOB AT THIS TIME. PT C/O SHEN 12/09 RADIATING TO LEFT SHOULDER. MEDICATED PER EMAR. GIVEN PO MEDS. TOLERATED WELL. PT DENIES ANY HEAVY VAGINAL BLEEDING AT THIS TIME. IV PATENT AND INFUSING TO RH. NO REDNESS OR SWELLING NOTED. WILL CONTINUE TO MONITOR. CALL LIGHT IN REACH. BED IN LOWEST POSITION.
--- NOTE | 2019-02-13 10:57 | NUR ---
SPOKE WITH PHARMACIST MINH ASKING FOR REPEAT PT AND INR FOR COUMADIN. ELIDA MCGHEE MADE AWARE.
[2019-02-13 12:08] VITALS: BP 109/78
--- NOTE | 2019-02-13 13:13 | NUR ---
PT SITTING UP AT BEDSIDE. NO ACUTE RESP DISTRESS NOTED ON RA. PT DENIES ANY PAIN AT THIS TIME. PT DENIES ANY HEAVY VAGINAL BLEEDING. IV PATENT AND INFUSING TO RH. NO REDNESS OR SWELLING NOTED. RECEIVED ORDERS TO TRANSFER PT MED SURG. TELE#20 RETURNED TO SUPERVISOR WEBBING DEBRA. WILL CONTINUE TO MONITOR. CALL LIGHT IN REACH. BED IN LOWEST POSITION.
--- NOTE | 2019-02-13 15:21 | NUR ---
PT SITTING UP IN BED. NO ACUTE RESP DISTRESS NOTED ON RA. PT DENIES ANY PAIN AT THIS TIME. PT DENIES ANY HEAVY VAGINAL BLEEDING AT THIS TIME. IV FLUIDS INFUSING ORDERED. NO REDNESS OR SWELLING NOTED. WILL CONTINUE TO MONITOR. CALL LIGHT IN REACH. BED IN LOWEST POSITION.
[2019-02-13 17:09] VITALS: BP 98/66
--- NOTE | 2019-02-13 17:40 | NUR ---
PT HAS NOT RECEIVED DOSE OF COUMADIN TODAY. CHARGE NURSE DEEDEE SPOKE WITH ELIDA MCGHEE. ELIDA ORDERED STAT PT AND INR. PER ELIDA MCGHEE ONCE RESULTS ARE IN CALL HER FOR DOSEAGE.
--- NOTE | 2019-02-13 18:46 | NUR ---
SPOKE WITH ELIDA MCGHEE REGARDIN INR. PER ELIDA MCGHEE ORDERED COUMADIN 10 MG PO ONCE NOW. CONFIRMED ORDER TORB, ORDER PUT IN.
--- NOTE | 2019-02-13 19:30 | NUR ---
RECEIVED PT FROM DAY SHIFT RN. PT AAOX4 DENIES SHEN/DIZZINESS. LUNG SOUNDS CTA ON RA WITH NO SOB NOTED. MED SURG PT DENIES CHEST PAIN/PRESSURE. ABD SOFT/ROUND ACTIVE BOWEL SOUNDS DENIES ABD PAIN/N/V. IV RH PATENT INFUSING WELL. PT AMBULATORY WITH BRP. PER PT SMALL AMOUNT OF PINK VAGINAL BLEED CONT DURING THE DAY. NO SIGNS OF ACUTE DISTRESS. CALL BUTTON WITHIN REACH. SAFETY PRECAUTIONS IN PLACE. FAMILY AT BEDSIDE. WILL CONTINUE TO MONITOR.
[2019-02-13 19:41] VITALS: BP 103/70
--- NOTE | 2019-02-14 01:20 | NUR ---
PT RESTING. BREATHING EVEN AND UNLABORED WITH NO SIGNS OF DISTRESS. CALL BUTTON WITHIN REACH. SAFETY PRECAUTIONS IN PLACE. WILL CONTINUE TO MONITOR.
--- NOTE | 2019-02-14 05:10 | NUR ---
PT SLEPT MOST OF THE NIGHT WITH NO SIGNS OF DISTRESS. BREATHING EVEN AND UNALBORED ON RA. IV PATENT AND INFUSING WELL. PT AMBULATES WTIH BRP. SMALL AMOUNT PINK COLOR ON PAD X2. PT DENIES ANY PAIN OR DISCOMFORT. MEDICATED PER EMAR. CALL BUTTON WITHIN REACH. SAFETY PRECAUTIONS IN PLACE. WILL CONTINUE TO MONITOR AND ENDORSE CARE TO DAY SHIFT RN.
[2019-02-14 05:28] VITALS: BP 131/79
[2019-02-14 06:10] LABS: BASOPHIL % 0.2 % (0-2); PLATELET COUNT 341 x10^3mcL (130-400)
[2019-02-14 06:18] LABS: RED CELL DISTRIBUTION WIDTH 29.4 % (11.5-14.5)
[2019-02-14 06:28] LABS: CALCIUM 8.9 mg/dL (8.5-10.1); CARBON DIOXIDE 23.9 mmol/L (21-32); CHLORIDE SERUM 106 mmol/L (98-107); CREATININE SERUM 0.7 mg/dL (0.6-1.0); GFR1 > 60 mL/min; GLUCOSE SERUM 88 mg/dL (74-106); POTASSIUM SERUM 3.9 mmol/L (3.5-5.1); SODIUM SERUM 140 mmol/L (136-145)
--- NOTE | 2019-02-14 07:24 | NUR ---
PT RESTING, DENIES PAIN. NO SIGNS OF DISTRESS. ENDORSED CARE TO DAY SHIFT RN, ALL QUESTIONS ADDRESSED.
--- NOTE | 2019-02-14 07:25 | NUR ---
RECEIVED PATIENT RESTING IN BED COMFORTABLY A/O X4, DENIES SHEN OR DIZZINESS, NO NEURO DEFICITS NOTED. BREATHING EVEN AND UNLABBORED ON ROOM AIR, DENIES SOB, NO DISTRESS NOTED. DENIES ANY PAIN. IV TO RH INTACT INFUSING NS AT 100 ML/HR FREE FROM REDNESS AND INFILTRATION. PATIENT IS CALM WITH CARE, AT BEDSIDE. INSTRUCTED TO CALL FOR ASSISTANCE IF NEEDED. SAFETY PRECAUTIONS MAINTAINED. WILL MONITOR.
[2019-02-14 08:01] LABS: rbc morphology (normal/abnorm) ABNORMAL (NORMAL)
[2019-02-14 08:33] VITALS: BP 96/67
--- NOTE | 2019-02-14 09:55 | NUR ---
PATIENT RESTING IN BED COMFORTABLY NO DISTRESS NOTED, AT BEDSIDE. ALL NEEDS ATTENDED TO, SAFETY PRECAUTIONS MAINTAINED. WILL MONITOR.
--- NOTE | 2019-02-14 11:21 | NUR ---
PATIENT SITTING UP IN BED COMFORTABLY NO DISTRESS NOTED, AT BEDSIDE. SAFETY PRECAUTIONS MAINTAINED, WILL MONITOR.
[2019-02-14 12:20] VITALS: BP 112/88
--- NOTE | 2019-02-14 12:30 | NUR ---
AT [id number]: PATIENT CALLED TO SEE NURSE. WENT TO ASSESS PATIENT- PATIENT SITTING UP AT EDGE OF BED, AT BEDSIDE PAIENT ASKED TO HAVE HER BLOOD PRESSURE CHECKED. PATIENT STATED SHE STARTED TO FEEL DIZZY AND NAUSEOUS, GOT UP OUT OF BED TO USE RESTROOM AND STATED SHE FELT LIKE SHE WAS GOING TO PASS OUT. ASSESSED PATIENTS VS: BP 112/88, MAP 96, HR 98. ELIDA MCGHEE MADE AWARE OF THE ABOVE AND STATED TO ENCOURAGE PATIENT TO GET UP OUT OF BED, SIT IN CHAIR AND AMBULATE TOLERATED AND MONITOR. SPOKE WITH PATIENT AND REGARDING ELIDA MCGHEE RECOMMENDATIONS, PATIENT VERBALIZED UNDERSTANDING. ALL QUESTIONS AND CONCERNS ADDRESSED, SAFETY PRECAUTIONS MAINTAINED. WILL MONITOR.
--- NOTE | 2019-02-14 14:15 | NUR ---
PATIENT RESTING IN BED COMFORTABLY NO DISTRESS NOTED, AT BEDSIDE. PATIENT ASKING FOR LINEN CHANGE, NURSE AID MADE AWARE AND WILL BE IN SHORTLY TO CHANGE LINEN. ALL NEEDS ATTENDED TO, SAFETY PRECAUTIONS MAINTAINED. WILL MONITOR.
--- NOTE | 2019-02-14 16:20 | NUR ---
PATIENT SEEN AMBULATING IN HALLWAY, GAIT SLOW AND STEADY, NO DISTRESS NOTED. WILL MONITOR.
--- NOTE | 2019-02-14 16:45 | NUR ---
RECEIVED ENDORSEMENT FROM SYLWIA VARGAS.
--- NOTE | 2019-02-14 17:30 | NUR ---
PT JUST CAME OUT OF THE RESTROOM; NO ACUTE RESPIRATORY DISTRESS, PAIN, OR DISCOMFORT NOTED. PT STATED THAT SHE IS "FINE". INSTRUCTED PT TO USE CALL LIGHT IF SHE NEEDS HELP ON ANYTHING. SIDE RAILS UP X 2, BED IN LOW POSITION, CALL LIGHT WITHIN REACH. WILL ENDORSE TO NOC SHIFT.
--- NOTE | 2019-02-14 17:30 | NUR ---
PT SITTING IN BED, FRIENDS/FAMILY BY BEDSIDE. PT DENIES RESPIRATORY DISTRESS, PAIN, OR DISCOMFORT AT THIS TIME. PT EATING DINNER AT THIS TIME WELL. SIDE RAILS UP X 2, BED IN LOW POSITION, CALL LIGHT WITHIN REACH. KCL IVPB RUNNING AT THIS TIME. WILL ENDORSE TO NOC SHIFT.
[2019-02-14 17:37] VITALS: BP 113/83
[2019-02-14 21:09] VITALS: BP 119/79
--- NOTE | 2019-02-14 23:54 | NUR ---
PT RESTING IN BED COMFORTABLY. NO S/S OF PAIN OR DISTRESS AT THIS TIME. BREATHING E/U ON RA. NO SIGNS OF ACUTE DISTRESS AT THSI TIME. BED AT LOWEST POSITION. CALL LIGHT WITHIN REACH. WILL CONTINUE TO MONITOR.
[2019-02-15 06:11] VITALS: BP 106/70
--- NOTE | 2019-02-15 06:28 | NUR ---
PT RESTING IN BED COMFORTABLY. AT BEDSIDE. DENIES PAIN AT THIS TIME. BREATHING E/U ON RA. NO SIGNS OF ACUTE DISTRESS NOTED. BED AT LOWEST POSITION. CALL LIGHT WITHIN REACH. WILL ENDORSE TO DAY NURSE.
[2019-02-15 06:54] LABS: BASOPHIL % 0.5 % (0-2); PLATELET COUNT 330 x10^3mcL (130-400)
[2019-02-15 07:05] LABS: RED CELL DISTRIBUTION WIDTH 28.5 % (11.5-14.5); rbc morphology (normal/abnorm) ABNORMAL (NORMAL)
[2019-02-15 07:07] LABS: CALCIUM 8.5 mg/dL (8.5-10.1); CARBON DIOXIDE 24.4 mmol/L (21-32); CHLORIDE SERUM 107 mmol/L (98-107); CREATININE SERUM 0.6 mg/dL (0.6-1.0); GFR1 > 60 mL/min; GLUCOSE SERUM 82 mg/dL (74-106); POTASSIUM SERUM 3.6 mmol/L (3.5-5.1); SODIUM SERUM 141 mmol/L (136-145)
--- NOTE | 2019-02-15 07:35 | NUR ---
RECEIVED PT IN BED. ASSESSED AND DOCUMENTED. DENIES PAIN THIS TIME. SAFTEY PRECAUTIONS ARE IN PLACE. WILL MONITOR.
--- NOTE | 2019-02-15 08:10 | NUR ---
INFORMED DOMESTIC CLEANER ELIDA ABOUT INR=5.1 AND PT=49.5. SHE SAID SHE WILL HOLD COUMADIN PO TODAY.
[2019-02-15 09:25] VITALS: BP 109/76
--- NOTE | 2019-02-15 14:00 | NUR ---
PT RESTING IN BED COMFORTABLY. DENIES ANY PAIN. STABLE.
[2019-02-15 17:43] VITALS: BP 97/68
--- NOTE | 2019-02-15 18:53 | NUR ---
PT C/O HEADACHE,09/08. ADMINSTERED TYLENOL PO AT [id number] AND REASSESSED PT NOW AND PT SAID SHE DOESNOT HAVE ANY HEADACHE NOW.
--- NOTE | 2019-02-15 19:10 | NUR ---
PT RESTING IN BED COMFORTABLY. DENIES ANY PAIN. STABLE. GAVE REPORT TO MACHINE MOLDER SQUEEZE NURSE.
--- NOTE | 2019-02-15 19:25 | NUR ---
RECEIVED PT RESTING IN BED, AOX4, REPORTS MINIMA HEADACHE (DULL), REPORTS PAIN UNDER CONTROL AT THIS TIME. PT MEDICATED WITH TYLENOL, WILL MONITOR FOR EFFICIENCY OF PAIN RELIEF. MEDUSURG PT, DENIES CP. MECHANICAL VALVE NOTED WITH AUSCULTATION,PT HX OF MECHANICAL VALVE REPLACEMENT, ON WARFARIN; WHICH IS HELD D/T ELEVATED INR. PT AWARE AND WILL WAIT FOR LABS IN AM TO ASSESS LEVELS. PT VERBALIZES UNDERSTANDING. PULSES PALPABLE BILAT, DENIES NUMBNESS/TINGLING IN FEET. RESP EVEN AND UNLABORED ON RA, DENIES SOB. ABD SOFT, ROUND, DENIES ABD PAIN. PT DENIES CURRENT VAGINAL BLEEDING, DENIES DYSURA. GENERALIZED WEAKNESS, AMBULATORY. SKIN INTACT. IV SITE TO THE RT HAND PATENT, SALINE LOCKED AT THIS TIME. ALL COMFORT AND SAFETY MEASURES PROVIDED FOR, CALL LIGHT WIHTN REACH, BED IN LOWEST POSITION, WILL CONTINUE TO MONITOR.
[2019-02-15 21:23] VITALS: BP 111/78
--- NOTE | 2019-02-15 21:30 | NUR ---
UPON ROUTINE ASSESSMENT, PT REPORTS SHEN HAS SUBSIDED. ALL COMFORT AND SAFETY MEASURSES PROVIDED FOR, CALL LIGHT WITHIN REACH, BED IN LOWEST POSITION, WILL CONTINUE TO MONITOR.
--- NOTE | 2019-02-16 05:00 | NUR ---
PT RESTED IN INTERVALS DURING SHIFT, NO ACUTE CHANGES OCCURRING OVERNIGHT. PT DENIES LIGHTHEADEDNESS/DIZZINESS DURING SHIFT. PT DENIES N/V/D DURING SHIFT, IV SITE REMAINS PATENT TO RT HAND, NO REDNESS, SWELLING OR PAIN NOTED. PT SALINE LOCKED. PT ANXIOUS TO KNOW RESULTS OF LATEST INR AND HOPEFUL TO BE GOING HOME TODAY. ALL COMFORT AND SAFETY MEASURES PROVIDED FOR, CALL LIGHT WITHIN REACH, BED IN LOWEST POSITION, WILL CONTINUE TO MONITOR.
[2019-02-16 05:15] VITALS: BP 112/71
[2019-02-16 06:40] LABS: CARBON DIOXIDE 26.9 mmol/L (21-32); CHLORIDE SERUM 106 mmol/L (98-107); CREATININE SERUM 0.7 mg/dL (0.6-1.0); GFR1 > 60 mL/min; GLUCOSE SERUM 91 mg/dL (74-106); SODIUM SERUM 140 mmol/L (136-145)
[2019-02-16 07:10] LABS: BASOPHIL % 0.6 % (0-2); PLATELET COUNT 323 x10^3mcL (130-400)
[2019-02-16 07:11] LABS: RED CELL DISTRIBUTION WIDTH 29.3 % (11.5-14.5)
[2019-02-16 07:12] LABS: rbc morphology (normal/abnorm) ABNORMAL (NORMAL)
--- NOTE | 2019-02-16 07:20 | NUR ---
ENDORSED ALL CARE TO DAYSHIFT NURSE, ALL QUESTIONS AND CONCERNS ADDRESSED. ALL COMFORT AND SAFETY MEASURES PROVIDED FOR, CALL LIGHT WITHIN REACH, BED IN LOWEST POSITION.
--- NOTE | 2019-02-16 07:35 | NUR ---
RECEIVED PT FROM PODIATRIC TECHNICIAN. ASSESSED AND DOCUMENTED. DENIES PAIN THIS TIME. NO VAGINAL BLEEDING THIS TIME. SAFTEY PRECAUTIONS ARE IN PLACE. WILL MONITOR.
--- NOTE | 2019-02-16 08:30 | NUR ---
AWARE ABOUT INR=4.1, PT=39.9. NO NEW ORDER RECEIVED THIS TIME.
[2019-02-16 09:51] VITALS: BP 102/70
--- NOTE | 2019-02-16 10:00 | NUR ---
PT IS STABLE. NO VAGINAL BLEEDING. DENIES ANY PAIN. SPOKE WITH PT AND HER . HE IS AWARE ABOUT INR=4.1 AND HE SAID HE WILL DISCHARGE PT TODAY.
--- NOTE | 2019-02-16 11:27 | NUR ---
Initial Nutrition Assessment- Dx: vaginal bleeding, vomiting, dizziness PMHx: metromenorrhagia, mitral valve replacement (2017) PSHx: None Labs: (02/16) Na 140, K 4.0, Glu 91, BUN 10, Cr 0.7, A1c 5.3, H/H 9.9/32 Meds: Colace, Taylor, Sodium chl, Tylenol, Zofran, Coumadin Diet: Regular PO Intakes: (02/15) D: 75%, B: 100%; (02/14) D: 100%, B: 90%; (02/13) D: 90%, L: 90%, B: 85%; overall av% x 7 meals. This provides ~2426 kcal and 68 gm protein; adequate to meet estimated needs. Ht: 154.94 cm/61 inches/5'1" Wt: 71.696 kg/157 pounds BMI: 29.8 kg/m2, overweight for age IBW: 105 pounds/48 kg %IBW: 149% AdjBW: 118 pounds/54 kg UBW: Age: 33 Food Allergies: Skin: Armond 22 Edema: None GI: Last BM 02/15/19 x 1 Pt admitted with dx: vaginal bleeding likely 2/2 possible Coumadin coagulopathy vs metromenorrhagia, microcytic anemia, hypermagnesemia, mitral valve replacement with hypocoagulative state, thrombocytosis, DVT prophylaxis. Pt declined interview with RDN at this time. Pt informed that if she has any food/nutrition/diet-related questions, she may ask and a RDN will be available. Pt is tolerating diet well. No report of N/V/D/C. Estimated Nutritional Needs Based on adjusted body weight of 54 kg. Energy: 1824-4657 kcal/d (25-30 kcal/kg for adult maintenance) Protein: 43-54 gm/d (0.8-1 gm/kg for adult maintenance) Fluid: 1263-3277 mL/d (1 mL/kcal) or per MD. Nutrition Diagnosis 1. No nutrition dx at this time. Intervention/RDN Recommendation(s): 1. Continue on regular diet as tolerated. Monitor/Evaluate Goal: Intake via PO intakes to meet at least 75% of estimated needs with acceptable tolerance within 5-7 days. Monitor: PO intakes and/or nutrition support tolerance, Labs, GI function, Skin integrity, Weights. F/U in 5-7days as low risk (02/21-)
--- NOTE | 2019-02-16 11:27 | NUR ---
Intervention/RDN Recommendation(s): 1. Continue on regular diet as tolerated.
[2019-02-16 13:16] VITALS: BP 104/70
--- NOTE | 2019-02-16 14:00 | NUR ---
DISCHARGE INSTRUCTIONS GIVEN. PB SIGNED AND SENT WITH PT. IV REMOVED AND DRESSING APPLIED. AT BEDSIDE. DENIES ANY PAIN. NO VAGINAL BLEEDING THIS TIME. PT REQUESTING TO HAVE WORK NOTE FOR HER . PAGED AND WAITING FOR THE RESPONSE. CHARGE NURSE AWARE.
--- NOTE | 2019-02-16 14:30 | NUR ---
HAS NOT CALLED BACK, PAGED HIM AGAIN FOR WORK NOTE FOR PT'S . PT SAID SHE IS NOT GOING TO WAIT FOR NOTE ANYMORE, SHE WANT TO LEAVE. HAM BONER WHEELED PT DOWN TO LOBBY ACCOMPANIED WITH PT'S . PT DC HOME IN STABLE CONDITION.
== END 2019-02-16 15:00 | disposition home or self-care (01) | DRG 661 ==
LOC: ED 21:38 → MU 02-11 03:24 → ED 02-11 03:24 → DU 02-11 03:24 → MU 02-11 03:54 → DU 02-11 04:30 → MU 02-13 14:57
PROVIDERS: Emergency Medicine; Internal Medicine; ADMIT Internal Medicine
PROC: 30233N1 Transfusion of Nonautologous Red Blood Cells into Peripheral Vein, Percutaneous Approach (ICD-10-PCS; principal; 2019-02-11)
DX: D68.32 Hemorrhagic disorder due to extrinsic circulating anticoagulants (principal); E44.0 Moderate protein-calorie malnutrition; E83.41 Hypermagnesemia; D47.3 Essential (hemorrhagic) thrombocythemia; I48.91 Unspecified atrial fibrillation; N93.9 Abnormal uterine and vaginal bleeding, unspecified; D50.0 Iron deficiency anemia secondary to blood loss (chronic); T45.515A Adverse effect of anticoagulants, initial encounter; Y92.018 Other place in single-family (private) house as the place of occurrence of the external cause; Z95.2 Presence of prosthetic heart valve; Z79.01 Long term (current) use of anticoagulants; Z88.0 Allergy status to penicillin
CPT/HCPCS: 84439; G0378; J7030; J7050; P9016; Q0092; Q0163

== ENCOUNTER 2019-03-19 17:54 | Emergency (ER) | payer OTHER ==
[~2019-03-19] VITALS: Ht 154.9 cm; Wt 70.3 kg
[2019-03-19 17:57] VITALS: BP 111/75; Ht 154.9 cm; Wt 70.3 kg
[2019-03-19 18:32] LABS: BASOPHIL % 0.5 % (0-2); PLATELET COUNT 352 x10^3mcL (130-400)
[2019-03-19 18:41] LABS: CALCIUM 7.8 mg/dL (8.5-10.1); CARBON DIOXIDE 27.2 mmol/L (21-32); CHLORIDE SERUM 105 mmol/L (98-107); CREATININE SERUM 0.7 mg/dL (0.6-1.0); GFR1 > 60 mL/min; GLUCOSE SERUM 91 mg/dL (74-106); POTASSIUM SERUM 3.9 mmol/L (3.5-5.1); SODIUM SERUM 140 mmol/L (136-145)
[2019-03-19 18:45] LABS: ALBUMIN 3.5 g/dL (3.4-5.0); ALKALINE PHOSPHATASE 95 U/L (46-116); ALT/SGPT 46 U/L (14-59); AST/SGOT 35 U/L (15-37); BILIRUBIN TOTAL 0.48 mg/dL (0.20-1.00); TOTAL PROTEIN, SERUM 7.8 g/dL (6.4-8.2)
[2019-03-19 19:21] LABS: rbc morphology (normal/abnorm) ABNORMAL (NORMAL)
== END 2019-03-19 20:27 | disposition home or self-care (01) ==
LOC: ED 17:54
DX: N30.90 Cystitis, unspecified without hematuria (principal); I48.91 Unspecified atrial fibrillation; Z88.0 Allergy status to penicillin; Z88.1 Allergy status to other antibiotic agents
CPT/HCPCS: 36415

== ENCOUNTER 2019-03-21 17:25 | Emergency (ER) | payer OTHER ==
[~2019-03-21] VITALS: Ht 154.9 cm; Wt 68.5 kg
[2019-03-21 17:47] VITALS: Ht 154.9 cm; Wt 68.5 kg
[2019-03-21 22:45] VITALS: BP 108/74
== END 2019-03-21 22:45 | disposition home or self-care (01) ==
LOC: ED 17:25
DX: N83.202 Unspecified ovarian cyst, left side (principal); N39.0 Urinary tract infection, site not specified; I48.91 Unspecified atrial fibrillation; Z86.2 Personal history of diseases of the blood and blood-forming organs and certain disorders involving the immune mechanism; Z88.0 Allergy status to penicillin; Z88.6 Allergy status to analgesic agent; Z98.890 Other specified postprocedural states; Z79.01 Long term (current) use of anticoagulants; Z79.84 Long term (current) use of oral hypoglycemic drugs; Z79.82 Long term (current) use of aspirin
CPT/HCPCS: Q0162

== ENCOUNTER 2019-06-19 07:08 | Emergency (ER) | payer OTHER ==
[~2019-06-19] VITALS: Ht 154.9 cm; Wt 68.5 kg
[2019-06-19 07:16] VITALS: Ht 154.9 cm; Wt 68.5 kg
[2019-06-19 07:53] LABS: BASOPHIL % 0.2 % (0-2); PLATELET COUNT 371 x10^3mcL (130-400)
[2019-06-19 07:55] LABS: RED CELL DISTRIBUTION WIDTH 19.2 % (11.5-14.5)
[2019-06-19 08:25] LABS: T3 TOTAL 1.9 ng/mL
[2019-06-19 08:26] LABS: CALCIUM 8.8 mg/dL (8.5-10.1); CARBON DIOXIDE 23.5 mmol/L (21-32); CHLORIDE SERUM 106 mmol/L (98-107); CREATININE SERUM 0.7 mg/dL (0.6-1.0); GFR1 > 60 mL/min; GLUCOSE SERUM 104 mg/dL (74-106); SODIUM SERUM 141 mmol/L (136-145)
[2019-06-19 08:31] LABS: ALBUMIN 3.6 g/dL (3.4-5.0); ALKALINE PHOSPHATASE 92 U/L (46-116); ALT/SGPT 68 U/L (14-59); AST/SGOT 36 U/L (15-37); BILIRUBIN TOTAL 0.37 mg/dL (0.20-1.00); LIPASE 116 IU/L (73-393); TOTAL PROTEIN, SERUM 7.3 g/dL (6.4-8.2); TRIGLYCERIDES 114 mg/dL (<150)
[2019-06-19 08:33] LABS: CHOLESTEROL 124 mg/dL (<200); HDL CHOLESTEROL 31 mg/dL (40-60)
[2019-06-19 09:02] LABS: FREE T4 1.08 ng/dL (0.76-1.46); FREE THYROXINE INDEX 3.2 ug/dL (1.4-4.5); T4(THYROXINE) 9.2 ug/dL (4.7-13.3)
[2019-06-19 09:23] LABS: rbc morphology (normal/abnorm) ABNORMAL (NORMAL)
[2019-06-19 09:24] LABS: ovalocyte/elliptocyte 1+; tear drop cell (dacryocyte) 1+
[2019-06-19 10:52] VITALS: BP 103/71
== END 2019-06-19 10:52 | disposition home or self-care (01) ==
LOC: ED 07:08
PROVIDERS: Specialist
DX: R42 Dizziness and giddiness (principal); D64.9 Anemia, unspecified; F43.0 Acute stress reaction; Z88.0 Allergy status to penicillin; Z88.1 Allergy status to other antibiotic agents
CPT/HCPCS: 36415; 84439; J8597; Q0162

== ENCOUNTER 2020-03-16 23:58 | Emergency (ER) | payer OTHER ==
[~2020-03-16] VITALS: Ht 154.9 cm; Wt 74.4 kg
[2020-03-17 00:06] VITALS: Ht 154.9 cm; Wt 74.4 kg
[2020-03-17 01:56] LABS: BASOPHIL % 0.7 % (0-2)
[2020-03-17 02:09] LABS: PLATELET COUNT 418 x10^3mcL (130-400); RED CELL DISTRIBUTION WIDTH 18.8 % (11.5-14.5)
[2020-03-17 02:14] LABS: CALCIUM 8.4 mg/dL (8.5-10.1); CARBON DIOXIDE 28.5 mmol/L (21-32); CHLORIDE SERUM 104 mmol/L (98-107); CREATININE SERUM 0.9 mg/dL (0.6-1.0); GFR1 > 60 mL/min; GLUCOSE SERUM 94 mg/dL (74-106); POTASSIUM SERUM 3.5 mmol/L (3.5-5.1); SODIUM SERUM 138 mmol/L (136-145)
[2020-03-17 02:18] LABS: ALBUMIN 3.7 g/dL (3.4-5.0); ALKALINE PHOSPHATASE 100 U/L (46-116); ALT/SGPT 62 U/L (14-59); AST/SGOT 42 U/L (15-37); BILIRUBIN TOTAL 0.33 mg/dL (0.20-1.00); TOTAL PROTEIN, SERUM 7.5 g/dL (6.4-8.2)
[2020-03-17 03:13] VITALS: BP 106/73
== END 2020-03-17 03:13 | disposition home or self-care (01) ==
LOC: ED 23:58
PROVIDERS: Emergency Medicine
DX: R07.89 Other chest pain (principal); I48.91 Unspecified atrial fibrillation; D64.9 Anemia, unspecified; I49.9 Cardiac arrhythmia, unspecified; Z79.01 Long term (current) use of anticoagulants; Z88.0 Allergy status to penicillin; Z88.1 Allergy status to other antibiotic agents
CPT/HCPCS: Q0092

== ENCOUNTER 2020-04-18 14:16 | Inpatient (IN) | payer OTHER ==
[~2020-04-18] VITALS: Ht 154.9 cm; Wt 74.2 kg
[2020-04-18 16:24] LABS: microscopic required? NO
[2020-04-18 16:56] LABS: UA SPECIFIC GRAVITY 1.025 (1.005-1.035); urine erythrocyte NEGATIVE (NEGATIVE)
[2020-04-18 17:02] LABS: BASOPHIL % 0.1 % (0-2); PLATELET COUNT 345 x10^3mcL (130-400)
[2020-04-18 17:04] LABS: RED CELL DISTRIBUTION WIDTH 18.9 % (11.5-14.5)
[2020-04-18 17:14] LABS: CALCIUM 8.4 mg/dL (8.5-10.1); CARBON DIOXIDE 26.1 mmol/L (21-32); CHLORIDE SERUM 108 mmol/L (98-107); CREATININE SERUM 0.7 mg/dL (0.6-1.0); GFR1 > 60 mL/min; GLUCOSE SERUM 96 mg/dL (74-106); POTASSIUM SERUM 3.9 mmol/L (3.5-5.1); SODIUM SERUM 142 mmol/L (136-145)
[2020-04-18 17:20] LABS: ALBUMIN 3.7 g/dL (3.4-5.0); ALKALINE PHOSPHATASE 83 U/L (46-116); ALT/SGPT 43 U/L (14-59); AST/SGOT 24 U/L (15-37); BILIRUBIN TOTAL 0.8 mg/dL (0.20-1.00); LIPASE 69 IU/L (73-393); TOTAL PROTEIN, SERUM 7.3 g/dL (6.4-8.2)
[2020-04-18] MEDS ORDERED: [UNRECOGNIZED DRUG - OTHER] (18:18)
[2020-04-18 19:52] LABS: MAGNESIUM 2.5 mg/dL (1.8-2.4); PHOSPHOROUS 3.6 mg/dL (2.5-4.9)
[2020-04-18 20:01] LABS: T3 TOTAL 0.9 ng/mL
[2020-04-18 20:13] VITALS: BP 103/65
[2020-04-18 20:18] VITALS: Ht 154.9 cm; Wt 74.2 kg
[2020-04-18 20:22] LABS: IRON 14 ug/dL (50-170); TOTAL IRON BINDING CAPACITY 437 ug/dL (250-450)
[2020-04-18 20:24] LABS: RED BLOOD CELLS 4.52 M/mm3 (4.10-5.10)
[2020-04-18 20:31] LABS: FREE T4 0.94 ng/dL (0.76-1.46); FREE THYROXINE INDEX 2.2 ug/dL (1.4-4.5); T4(THYROXINE) 6.5 ug/dL (4.7-13.3)
[2020-04-19 05:38] VITALS: BP 88/55
[2020-04-19 07:04] LABS: BASOPHIL % 0.2 % (0-2); CALCIUM 8.4 mg/dL (8.5-10.1); CARBON DIOXIDE 25.7 mmol/L (21-32); CHLORIDE SERUM 104 mmol/L (98-107); CREATININE SERUM 0.6 mg/dL (0.6-1.0); GFR1 > 60 mL/min; GLUCOSE SERUM 90 mg/dL (74-106); MAGNESIUM 2.3 mg/dL (1.8-2.4); PHOSPHOROUS 2.9 mg/dL (2.5-4.9); PLATELET COUNT 350 x10^3mcL (130-400); POTASSIUM SERUM 3.8 mmol/L (3.5-5.1); SODIUM SERUM 139 mmol/L (136-145)
[2020-04-19 07:16] LABS: RED CELL DISTRIBUTION WIDTH 18.9 % (11.5-14.5)
[2020-04-19 07:17] LABS: rbc morphology (normal/abnorm) ABNORMAL (NORMAL)
[2020-04-19 08:20] VITALS: BP 100/69
[2020-04-19 12:53] VITALS: BP 102/72
[2020-04-19 13:47] LABS: AMPHETAMINE QUAL UR NONE DETECTED (See below)
[2020-04-19 16:42] VITALS: BP 105/67
[2020-04-19 20:00] VITALS: BP 105/66
[2020-04-20 05:46] VITALS: BP 101/62
[2020-04-20 06:50] LABS: BASOPHIL % 0.2 % (0-2); PLATELET COUNT 344 x10^3mcL (130-400)
[2020-04-20 06:59] LABS: RED CELL DISTRIBUTION WIDTH 19.4 % (11.5-14.5)
[2020-04-20 07:05] LABS: CALCIUM 8.5 mg/dL (8.5-10.1); CHLORIDE SERUM 107 mmol/L (98-107); CREATININE SERUM 0.6 mg/dL (0.6-1.0); GFR1 > 60 mL/min; GLUCOSE SERUM 93 mg/dL (74-106); MAGNESIUM 2.3 mg/dL (1.8-2.4); PHOSPHOROUS 3.2 mg/dL (2.5-4.9); POTASSIUM SERUM 3.5 mmol/L (3.5-5.1); SODIUM SERUM 136 mmol/L (136-145)
[2020-04-20 09:29] VITALS: BP 114/72
[2020-04-20 13:20] VITALS: BP 102/66
[2020-04-20 17:00] VITALS: BP 104/68
[2020-04-20 20:37] VITALS: BP 122/82
[2020-04-21 05:50] VITALS: BP 106/69
[2020-04-21 06:58] LABS: CARBON DIOXIDE 25.5 mmol/L (21-32); CHLORIDE SERUM 103 mmol/L (98-107); CREATININE SERUM 0.6 mg/dL (0.6-1.0); GFR1 > 60 mL/min; GLUCOSE SERUM 96 mg/dL (74-106); POTASSIUM SERUM 3.6 mmol/L (3.5-5.1); SODIUM SERUM 138 mmol/L (136-145)
[2020-04-21 07:23] LABS: BASOPHIL % 0.5 % (0-2); PLATELET COUNT 377 x10^3mcL (130-400)
[2020-04-21 07:27] LABS: RED CELL DISTRIBUTION WIDTH 19.4 % (11.5-14.5)
[2020-04-21 08:06] VITALS: BP 98/67
[2020-04-21 08:18] LABS: rbc morphology (normal/abnorm) ABNORMAL (NORMAL)
[2020-04-21 08:20] LABS: burr cell (echinocyte) 1+
[2020-04-21 11:34] VITALS: BP 97/74
[2020-04-21 16:05] VITALS: BP 104/70
[2020-04-21 21:45] VITALS: BP 96/63
[2020-04-22 05:16] VITALS: BP 98/56
[2020-04-22 07:27] LABS: CALCIUM 9.1 mg/dL (8.5-10.1); CARBON DIOXIDE 25.2 mmol/L (21-32); CHLORIDE SERUM 104 mmol/L (98-107); CREATININE SERUM 0.7 mg/dL (0.6-1.0); GFR1 > 60 mL/min; GLUCOSE SERUM 100 mg/dL (74-106); POTASSIUM SERUM 3.7 mmol/L (3.5-5.1); SODIUM SERUM 139 mmol/L (136-145)
[2020-04-22 07:41] VITALS: BP 96/60
[2020-04-22 07:47] LABS: BASOPHIL % 0.2 % (0-2); PLATELET COUNT 394 x10^3mcL (130-400)
[2020-04-22 08:01] LABS: RED CELL DISTRIBUTION WIDTH 19.7 % (11.5-14.5)
[2020-04-22 10:54] LABS: rbc morphology (normal/abnorm) ABNORMAL (NORMAL)
[2020-04-22 11:56] VITALS: BP 95/67
[2020-04-22 16:14] VITALS: BP 94/65
[2020-04-22 19:24] VITALS: BP 101/63
[2020-04-23 01:03] LABS: BASOPHIL % 0.1 % (0-2); PLATELET COUNT 373 x10^3mcL (130-400)
[2020-04-23 01:10] LABS: RED CELL DISTRIBUTION WIDTH 19.3 % (11.5-14.5)
[2020-04-23 01:22] LABS: tear drop cell (dacryocyte) 1+
[2020-04-23 01:25] LABS: rbc morphology (normal/abnorm) ABNORMAL (NORMAL)
[2020-04-23 05:26] VITALS: BP 98/65
[2020-04-23 08:41] VITALS: BP 94/56
[2020-04-23 11:19] LABS: UA SPECIFIC GRAVITY >=1.030 (1.005-1.035); microscopic required? YES; urine erythrocyte NEGATIVE (NEGATIVE)
[2020-04-23 12:42] VITALS: BP 102/69
[2020-04-23 16:19] VITALS: BP 108/69
[2020-04-23 21:07] VITALS: BP 95/64
[2020-04-24 05:20] VITALS: BP 102/68
[2020-04-24 07:26] LABS: BASOPHIL % 0.3 % (0-2); PLATELET COUNT 298 x10^3mcL (130-400)
[2020-04-24 07:46] LABS: CALCIUM 8.2 mg/dL (8.5-10.1); CARBON DIOXIDE 23.1 mmol/L (21-32); CHLORIDE SERUM 102 mmol/L (98-107); CREATININE SERUM 0.6 mg/dL (0.6-1.0); GFR1 > 60 mL/min; GLUCOSE SERUM 93 mg/dL (74-106); POTASSIUM SERUM 3.3 mmol/L (3.5-5.1); SODIUM SERUM 133 mmol/L (136-145)
[2020-04-24 09:59] VITALS: BP 101/66
[2020-04-24 13:07] VITALS: BP 93/61
[2020-04-24 16:41] VITALS: BP 101/70
[2020-04-24 20:22] VITALS: BP 105/72
[2020-04-25 05:31] VITALS: BP 97/63
[2020-04-25 05:47] LABS: BASOPHIL % 0.5 % (0-2); PLATELET COUNT 319 x10^3mcL (130-400)
[2020-04-25 05:49] LABS: CALCIUM 8.8 mg/dL (8.5-10.1); CARBON DIOXIDE 25.1 mmol/L (21-32); CHLORIDE SERUM 102 mmol/L (98-107); CREATININE SERUM 0.6 mg/dL (0.6-1.0); GFR1 > 60 mL/min; GLUCOSE SERUM 103 mg/dL (74-106); POTASSIUM SERUM 3.7 mmol/L (3.5-5.1); SODIUM SERUM 135 mmol/L (136-145)
[2020-04-25 07:11] LABS: RED CELL DISTRIBUTION WIDTH 19.6 % (11.5-14.5)
[2020-04-25 08:26] VITALS: BP 103/73
[2020-04-25] MEDS ORDERED: LEVAQUIN500 M1 PO (10:23)
[2020-04-25] MEDS ORDERED: FLA500 PO (10:24)
[2020-04-25] MEDS ORDERED: PYRIDIUM100 MG PO (10:25)
[2020-04-25 12:37] VITALS: BP 94/69
[2020-04-25 12:44] VITALS: BP 94/69
== END 2020-04-25 14:08 | disposition home or self-care (01) | DRG 244 ==
LOC: ED 14:16 → DU 18:05 → MU 18:05 → DU 20:04 → MU 04-19 16:19 → DU 04-22 22:37
PROVIDERS: Emergency Medicine; ADMIT Family Medicine; ATTEND Family Medicine
DX: K57.92 Diverticulitis of intestine, part unspecified, without perforation or abscess without bleeding (principal); I48.91 Unspecified atrial fibrillation; D64.9 Anemia, unspecified; I10 Essential (primary) hypertension; N92.1 Excessive and frequent menstruation with irregular cycle; Z20.828 Contact with and (suspected) exposure to other viral communicable diseases; Z79.899 Other long term (current) drug therapy; Z88.0 Allergy status to penicillin; Z88.8 Allergy status to other drugs, medicaments and biological substances; Z95.4 Presence of other heart-valve replacement; Z79.01 Long term (current) use of anticoagulants; Z79.82 Long term (current) use of aspirin; Z68.29 Body mass index [BMI] 29.0-29.9, adult
CPT/HCPCS: 84439; G0378; J1885; J1956; J2405; J2916; J3010; J3370; J3490; J7030; J7040; J7050; Q0092; Q9967

== ENCOUNTER 2020-06-01 12:43 | Inpatient (IN) | payer OTHER ==
[~2020-06-01] VITALS: Ht 154.9 cm; Wt 68.5 kg
[~2020-06-01 12:43] MED LIST changes: +FLA500 PO; +PYRIDIUM100 MG PO; +[UNRECOGNIZED DRUG - OTHER]
[2020-06-01 13:00] VITALS: Ht 154.9 cm; Wt 68.5 kg
--- NOTE | 2020-06-01 13:05 | NUR ---
PT RETURNED TO LOBBY, NAD NOTED.
[2020-06-01 13:39] LABS: BASOPHIL % 0.5 % (0-2); PLATELET COUNT 375 x10^3mcL (130-400)
[2020-06-01 13:41] LABS: RED CELL DISTRIBUTION WIDTH 30.3 % (11.5-14.5)
[2020-06-01 13:45] LABS: CALCIUM 9.1 mg/dL (8.5-10.1); CARBON DIOXIDE 25.8 mmol/L (21-32); CHLORIDE SERUM 101 mmol/L (98-107); CREATININE SERUM 0.6 mg/dL (0.6-1.0); GFR1 > 60 mL/min; GLUCOSE SERUM 79 mg/dL (74-106); POTASSIUM SERUM 3.6 mmol/L (3.5-5.1); SODIUM SERUM 137 mmol/L (136-145)
[2020-06-01 14:03] LABS: ALKALINE PHOSPHATASE 115 U/L (46-116); ALT/SGPT 46 U/L (14-59); AST/SGOT 30 U/L (15-37); BILIRUBIN TOTAL 0.5 mg/dL (0.20-1.00)
--- NOTE | 2020-06-01 14:35 | NUR ---
PT BIB SELF C/C ABD PAIN STS SUDDEN ONSET DR BLISS AT BEDSIDE TO EVA
[2020-06-01 15:07] LABS: microscopic required? NO
[2020-06-01 15:21] LABS: UA SPECIFIC GRAVITY 1.025 (1.005-1.035); urine erythrocyte NEGATIVE (NEGATIVE)
--- NOTE | 2020-06-01 16:00 | NUR ---
TAKEN TO RADIOLOGY FOR CT
--- NOTE | 2020-06-01 17:35 | NUR ---
PT IN NO DISTRESS ON PHONE
--- NOTE | 2020-06-01 18:48 | NUR ---
BACK FROM CT
--- NOTE | 2020-06-01 19:44 | NUR ---
REPORT RECEIVED FROM AMOR AND -PT IS LYING SUPINE IN THE ROOM 15. PT IS C/O PAIN. MPT REQUESTED BLANKET GIVEN AND MORPINE 2MG GIVEN FOR PAIN. MEDICAL STUDENT IN THE ROOM ASSESSING PT. PT IS BHUTANESE SPEAKING AND HAVING DIFFICULTY ANSWERING THE STUDENTS QUESTION. BLOOD PRERSSURE DROPPED TO 82/49 S/P MORPHINE ADMINISTRATION. RECYCLED BACK TO 91/58.
[2020-06-01 21:19] LABS: FREE T4 0.9 ng/dL (0.76-1.46); FREE THYROXINE INDEX 2.3 ug/dL (1.4-4.5); T4(THYROXINE) 7.8 ug/dL (4.7-13.3)
[2020-06-01 21:27] LABS: T3 TOTAL 1.61 ng/mL
[2020-06-01 21:30] LABS: CHOLESTEROL/HDL RATIO 4.2; MAGNESIUM 2.4 mg/dL (1.8-2.4); PHOSPHOROUS 3.5 mg/dL (2.5-4.9)
[2020-06-01 21:32] LABS: AMPHETAMINE QUAL UR NONE DETECTED (See below)
--- NOTE | 2020-06-02 01:23 | NUR ---
COVERING PRIMARY RN FOR LUNCH AT THIS TIME.
--- NOTE | 2020-06-02 01:24 | NUR ---
PT BEING TRANSFERRED TO [facility] AT IS TIME VIA GURNEY BY JERMAIN SOTELO.
--- NOTE | 2020-06-02 01:32 | NUR ---
PATIENT RECEIVED FROM ED VIA GUERNEY ACCOMPANIED BY RN, PATIENT ASSISTED IN BED, GOWNED, ACQUIANTED AND ORIENTED TO BEDSIDE EQUIPMENTS AND UNIT POLICIES, CALL LIGHT PLACED IN REACH, SAFETY PRECAUTIONS INITIATED.SALINE LOCK NOTED TO RT AC AND RT HAND. PATIENT STATED SEEKED MEDICAL INTERVENTION D/T WORSENING LLQ ABDOMINAL PAIN RADIATING TO MID ABDOMEN, DENIED N/V. PREVIOUSLY STATED HAD THIS TYPE OF PAIN BUT WAS DX UTI.STATED PAIN AT THIS TIME IS AT 4/10 RECEIVED MS IN ED AND PAIN IS SLOWLY SUBSIDING. PATIENT INFORMED ABOUT PAIN MANAGEMENT AND POC WHILE ON THE FLOOR. WILL CONTINUE TO MONITOR.
[2020-06-02 02:03] VITALS: BP 100/67
--- NOTE | 2020-06-02 03:37 | NUR ---
PATIENT COMPLAINED OF PAIN TO LLQ, RATED PAIN AT 6/10 THROBBING, MEDICATED PRN WILL MONITOR EFFECTIVENESS. ALSO PATIENT WAS SEEN WITH NEWSPAPER WRITER EARLIER USING THE BATHROOM CLAIMED VOIDED WITHOUT DIFF, DENIED BURNING PAIN UPON URINATION. AMBULATED WITH STEADY GAIT.
--- NOTE | 2020-06-02 04:37 | NUR ---
PATIENT CHECKED THIS TIME STATED PAIN AT 1/10 COMFORTABLE, WILL CONTINUE TO MONITOR.
[2020-06-02 05:10] VITALS: BP 92/58
--- NOTE | 2020-06-02 06:26 | NUR ---
PATIENT SINCE ARRIVAL TO THE FLOOR SLEPT GOOD AND RESTED WELL STATED. AMBULATORY TO THE BATHROOM WITH STEADY GAIT, VOIDED WITHOUT DIFF. WAS MEDICATED X1 WITH NORCO WITH SMALL SIP OF WATER FOR COMPLAINT OF ABDOMINAL PAIN RECEIVED DESIRED PAIN GOAL. DENIED N/V. IV SITE NO SIGN OF INFILTRATION. SAFETY PRECAUTIONS MAINTAINED. WILL ENDORSE CONTINUITY OF CARE TO INCOMING NURSE.
--- NOTE | 2020-06-02 07:28 | NUR ---
HANDS OFF BEDSIDE REPORT AND INTRODUCTION PERFORMED WITH INCOMING NURSE CHRISTIANA FOR CONTINUITY OF PATIENT CARE.
--- NOTE | 2020-06-02 07:30 | NUR ---
PATIENT IS RESTING IN BED QUEITLY. NO ADDITIONAL DISTRESS NOTED. CALL LIGHT WITHIN REACH. WILL CONT TO MONITOR.
[2020-06-02 07:58] LABS: PLATELET COUNT 294 x10^3mcL (130-400)
--- NOTE | 2020-06-02 08:00 | NUR ---
EXPLAINED PLAN OF CARE AND PATIENT VERBALIZED UNDERSTANDING USING INSTRUMENT AND CONTROL TECHNICIAN. NO ADDITIONAL DISTRESS NOTED AT THIS TIME. CONT WITH NPO.
[2020-06-02 08:01] LABS: BASOPHIL % 2.8 % (0-2); RED CELL DISTRIBUTION WIDTH 27.6 % (11.5-14.5)
[2020-06-02 08:18] VITALS: BP 100/59
--- NOTE | 2020-06-02 09:04 | NUR ---
GIVEN TYLENOL FOR PAIN INSTEAD OF NORCO DUE TO SBP LESS THAN 100. DENIES DIZINNES OR FATIGUE. WILL CONT TO MONITOR
[2020-06-02 09:20] LABS: CALCIUM 8.4 mg/dL (8.5-10.1); CARBON DIOXIDE 23.9 mmol/L (21-32); CHLORIDE SERUM 106 mmol/L (98-107); CREATININE SERUM 0.7 mg/dL (0.6-1.0); GFR1 > 60 mL/min; GLUCOSE SERUM 94 mg/dL (74-106); MAGNESIUM 2.4 mg/dL (1.8-2.4); PHOSPHOROUS 4.1 mg/dL (2.5-4.9); POTASSIUM SERUM 3.7 mmol/L (3.5-5.1); SODIUM SERUM 140 mmol/L (136-145)
[2020-06-02 10:42] LABS: rbc morphology (normal/abnorm) ABNORMAL (NORMAL)
[2020-06-02 11:58] VITALS: BP 102/64
[2020-06-02 15:51] VITALS: BP 109/69
--- NOTE | 2020-06-02 17:45 | NUR ---
SPOKE WITH DR RONDON REGARDING HIGH PT/INR IF OKAY TO GIVE COUMADIN 2.5MG. PER [place] TO GIVE. INR NEEDS TO BE ABOVE 3.
--- NOTE | 2020-06-02 18:09 | NUR ---
PATIENT IS RESTING IN BED QUEITLY. NO ADDITIONAL DISTRESS NOTED. CALL LIGHT WITHIN REACH. WILL CONT TO MONITOR.
--- NOTE | 2020-06-02 19:15 | NUR ---
RECEIVED PATIENT FROM DAY SHIFT NURSE. NO ACUTE DISTRESS. AWAKE, ALERT AND ORIENTED X4. DENIES ABD PAIN AT THIS TIME. DENIES CHEST PAIN OR CHEST PRESSURE. EU BREATHING NOTED ON ROOM AIR. DENIES SOB. RAC IV AND RIGHT WRIST IV WNL. FLUIDS INFUSING WELL. BED IN LOWEST POSITION. CALL LIGHT WITHIN REACH. SIDE RAILS UP X2.
[2020-06-02 20:49] VITALS: BP 106/72
--- NOTE | 2020-06-03 00:30 | NUR ---
REMAINS IN NO ACUTE DISTRESS. NO C/O OF ABD PAIN AT THIS TIME. EU BREATHING NOTED ON ROOM AIR. FLUIDS INFUSING WELL. REMAINS NPO. BED IN LOWEST POSITION. CALL LIGHT WITHIN REACH. SIDE RAILS UP X2.
--- NOTE | 2020-06-03 04:30 | NUR ---
PATIENT C/O LOWER ABD PAIN, MEDICATED WITH NORCO PER EMAR. BP STABLE.
[2020-06-03 05:57] VITALS: BP 103/74
--- NOTE | 2020-06-03 06:24 | NUR ---
REMAINS IN NO ACUTE DISTRESS. NO C/O OF ABD PAIN AT THIS TIME. EU BREATHING NOTED ON ROOM AIR. FLUIDS INFUSING WELL. TOLERATED MEDICATIONS WELL. WILL ENDORSE CARE TO ONCOMING SHIFT NURSE. WILL ENDORSE CARE TO ONCOMING SHIFT NURSE.
[2020-06-03 07:02] LABS: BASOPHIL % 0.1 % (0-2); PLATELET COUNT 296 x10^3mcL (130-400)
[2020-06-03 07:22] LABS: RED CELL DISTRIBUTION WIDTH 29.4 % (11.5-14.5)
[2020-06-03 07:46] LABS: CALCIUM 8.9 mg/dL (8.5-10.1); CARBON DIOXIDE 22.3 mmol/L (21-32); CHLORIDE SERUM 103 mmol/L (98-107); CREATININE SERUM 0.6 mg/dL (0.6-1.0); GFR1 > 60 mL/min; GLUCOSE SERUM 81 mg/dL (74-106); MAGNESIUM 2.2 mg/dL (1.8-2.4); PHOSPHOROUS 3.7 mg/dL (2.5-4.9); POTASSIUM SERUM 3.8 mmol/L (3.5-5.1); SODIUM SERUM 138 mmol/L (136-145)
--- NOTE | 2020-06-03 08:00 | NUR ---
PATIENT AWAKE, ALERT, ORIENTED. TAJIK SPEAKING. BED LOCKED IN LOWEST POSITION. CALL LIGHT IN REACH. IV PATENT, RUNNING NS @ 100. DENIES PAIN. DENIES NEEDING ANYTHING AT THIS TIME.
[2020-06-03 08:26] VITALS: BP 105/73
[2020-06-03 11:46] VITALS: BP 110/88
[2020-06-03 13:24] LABS: rbc morphology (normal/abnorm) ABNORMAL (NORMAL)
--- NOTE | 2020-06-03 14:58 | NUR ---
1. Continue with full liquid diet as tolerate. Monitor intake and tolerance 2. Recommend a low fiber/low residual diet when appropriate to advance pt's diet.
--- NOTE | 2020-06-03 14:58 | NUR ---
Initial Nutrition Assessment: [address] SAURABH CASTILLO, ADAY 34F Nursing trigger: Poor PO > 3 days Consult: diverticulitis Dx: Diverticulitis PMHx: HTN, Afib, s/p mitral valvuloplasty PSHx: mitral valve replacement Labs: (06/03) H/H 10.4/32L, BUN 5L, (06/01) TAG 160H, HDL 36L Meds: Colace, sodium, flagyl, Nenana, Levaquin Diet: Full liquid diet PO intake since admission: No entry d/t previous NPO status Ht: 154.94cm/61in Wt: 68.492kg/150.7lbs BMI: 28.5 Bed scale: 139.8lbs IBW: 47.73kg/105lbs %IBW: 143.5% ABW: 53kg UBW: 150-158lbs per pt; 74.2kg per [place] visit on 04/21 Age: 34 Food Allergies: NKFA Edema: no edema noted Last BM: 06/01 Skin: skin intact Armond: 21 Per H and P (06/01), 34 y/o F with PMH of HTN, AFib and prosthetic mitral valve presented to the ED with severe abdominal pain. She states that it started last night and gradually got worsen. Pain is located in her left lower abdomen, radiates to her right side and suprapubic area, 7/10 in intensity. She stated that last dinner was a day before and today morning was able only to eat fruits and drink water. Last BM was yesterday, no blood in it. She denies any chest pain, palpitation, fever, chills, nausea or vomiting, cough or contact with Covid positive patients. Pateint is s/p mitral valve replacment 3 yrs ago and has been on Coumadin for 4 yrs. She has PCP and f/up regularly as well as INR lab by weekly bases. Last admission was at 04/18/2020 for the same symptoms, has been Dx Acute diverticulitis and UTI. She has been at the hospital for 8 days, was on Flagyl and Levoquin. Per patient she had no pain after discharge until yesterday. She is ambulatory at the baseline and no home O2 use. Pt was admitted with dx: acute sigmoid diverticulitis without perforation, h/o HTN, status post mitral valve replacement and h/o Afib, DVT. RD Note (06/03/2020) Pt was seen lying in bed during bedside visit. Per pt, she has constipation, and her last BM was two days ago. Pt on Colace. Pt was advanced to full liquid diet this morning, and she was previously NPO. Per pt, she was slightly hungry for food, and pt denied chewing/swallowing difficulty prior to admission. Pt denied recent weight change, and her usual body weight fluctuate between 150lbs and 158lbs. At home, she takes vitamin C, and she's aware of the interaction between Warfarin and vitamin K for she's on Warfarin at home. Additionally, pt was not on any special diet at home, and she walks 20minutes five times per week as physical activity. Problem with: N/V/D/C: constipation, and BM was 2 days ago; pt on Colace Problems with: Chewing: Swallowing: none per pt Current appetite: just advanced to full liquid diet, no intake yet, but pt reported feeling slightly hungry Recent wt change: none per pt %wt change: none per pt Height: 5'1" Vitamin/Supplement use: vitamin C Special diet at home: none per pt Physical activity: walking 20 minutes a day five times a week Nutrition education given (specify specific nutrition education and handout given): Education on fiber was provided to pt. Recommended a low fiber diet during recovery and slowly introduce fiber back to diet when symptoms subside. Written education "Fiber Content of Food" in [place] from [facility] was provided to pt, and pt accepted education. Food-drug interactions? Education given? Warfarin and vitamin K. Pt said she's aware of the interaction. Estimated Nutritional Needs Based on adjusted body weight (53kg) Energy: 3892-4373 kcal/day (25-30 kcal/kg for maintenance) Protein: 42-53 g/day (0.8-1 g/kg for maintenance) Fluid: 4387-6525 mL/day (1 mL/kcal) Nutrition Diagnosis: 1. Altered GI function r/t diverticulitis a/e/b pt was admitted with abd pain and currently on liquid diet. Intervention 1. Continue with full liquid diet as tolerate. Monitor intake and tolerance 2. Recommend a low fiber/low residual diet when appropriate to advance pt's diet. Monitor/Evaluate Goal: PO intake at least 75% of estimated needs Monitor: PO intake, Labs, GI function, Body weight F/U in 2-3 days as high risk 06/05-
[2020-06-03 17:00] VITALS: BP 110/76
--- NOTE | 2020-06-03 18:07 | NUR ---
BED LOCKED IN LOWEST POSITION. CALL LIGHT IN REACH. PATIENT WAS UP IN THE CHAIR FOR A WHILE THIS AFTERNOON. DENIES PAIN. DENIES NEEDING ANYTHING. IV PATENT, RUNNING NS @ 100.
--- NOTE | 2020-06-03 19:20 | NUR ---
RECEIVED PATIENT FROM DAY SHIFT NURSE. PATIENT IN NO ACUTE DISTRESS. AWAKE, ALERT AND ORIENTED X4. DENIES ABD PAIN AT THIS TIME. PATIENT ADVANCED TO FULL LIQUID DIET AND STATES SHE HAS BEEN TOLERATING WELL. EU BREATHING NOTED ON ROOM AIR. IVS WNL, FLUIDDS INFUSING WELL. BED IN LOWEST POSITION. CALL LIGHT WITHIN REACH. SIDE RAILS UP X2.
[2020-06-03 19:40] VITALS: BP 91/52
--- NOTE | 2020-06-03 20:35 | NUR ---
PT C/O LEFT LOWER ABDOMINAL PAIN, MEDICATED PER EMAR WITH NORCO.
--- NOTE | 2020-06-04 00:20 | NUR ---
NO C/O OF ABD PAIN AT THIS TIME. PATIENT SLEEPING, EU BREATHING NOTED ON ROOM AIR. IVF INFUSING WELL.
[2020-06-04 05:33] VITALS: BP 109/77
--- NOTE | 2020-06-04 06:15 | NUR ---
PATIENT C/O 01/08 GENERALIZED PAIN, NORCO ADMINISTRERED PER EMAR, WILL CONTINUE TO MONITOR PAIN LEVELS
--- NOTE | 2020-06-04 06:43 | NUR ---
TOLERATED MEDICATIONS WELL. NO C/O OF ABD PAIN AT THIS TIME. IVF INFUSING WELL. EU BREATHING NOTED ON ROOM AIR. WILL CONTINUE TO MONITOR. WILL ENDORSE CARE TO ONCOMING SHIFT NURSE.
--- NOTE | 2020-06-04 07:25 | NUR ---
RECEIVED PATIENT FROM OUTGOING NURSE, ALERT AND ORIENTED X 4, ABLE TO VERBALIZE NEEDS, NO C/O PAIN, LUNG SOUNDS CLEAR ON RA, ABLE TO AMBULATE INDEPENDENTLY, IV IN RAC PATENT, DENIES CHEST PAIN, BOWEL SOUNDS ACTIVE, LAST BM 06/02, ON FULL LIQUID DIET, SKIN INTACT, PEDAL PULSES STRONG AND EQUAL BILATERALLY, NO EDEMA NOTED, CONTINENT OF BLADDER, PATIENT PLEASANT AND COOPERATIVE
[2020-06-04 08:38] VITALS: BP 113/80
--- NOTE | 2020-06-04 09:03 | NUR ---
PATIENT C/O 01/08 GENERALIZED PAIN, NORCO ADMINISTRERED PER EMAR, WILL CONTINUE TO MONITOR PAIN LEVELS
[2020-06-04 12:32] VITALS: BP 119/87
--- NOTE | 2020-06-04 18:29 | NUR ---
PATIENT RESTING COMFORTABLY IN BED, NO C/CO PAIN OR DISCOMFORT AT THIS TIME, WILL ENDORSE CARE TO PM NURSE
[2020-06-04 18:33] VITALS: BP 125/91
--- NOTE | 2020-06-04 19:25 | NUR ---
RECEIVED PT FROM AM NURSE AT THIS TIME, PT LAYING IN BED ON HER CELL PHONE. AA/O X 4, ABLE TO MAKE NEEDS KNOWN, DENIES HEADACHE/ DIZZINESS. PT NOW ON REGULAR DIET. MED SURG, DENIES CHEST PAIN/ CHEST PRESSURE. STRONG PULSES, NO NOTED EDEMA. LUNG SOUNDS CTA, RESPIRATIONS E/U ON RA. ACTIVE BS X 4 QUADS, DENIES N/V/D AT THIS TIME. VOIDS FREELY. SKIN INTACT. IV TO RAC INTACT, IV FLUIDS ORDER DC, SL, NO ERYTHEMA, NO INFILTRATION. IV TO RW INTACT, SL, FLUSHING WELL, NO ERYTHEMA/ NO INFILTRATION. DENIES ABD PAIN AT THIS TIME AND STATED NORCO GIVEN AROUND 1810 DURING AM SHIFT IS STILL EFFECTIVE. ALL CONCERNS MET. CALL BUTTON WITHIN REACH, WILL CONTINUE TO MONITOR.
[2020-06-04 21:29] VITALS: BP 105/77
--- NOTE | 2020-06-05 00:10 | NUR ---
PT LAYING IN BED WITH EYES CLOSED, BUT EASILY AROUSABLE. RESPIRATIONS E/U, RISE AND FALL OF CHEST OBSERVED. NO ACUTE DISTRESS NOTED. CALL BUTTON WITHIN REACH, WILL CONTINUE TO MONITOR.
[2020-06-05 05:22] VITALS: BP 106/72
--- NOTE | 2020-06-05 06:49 | NUR ---
PT SLEPT IN INTERVALS THROUGHOUT THE NIGHT, BUT EASILY AROUSABLE. PO FLAGYL TAKEN PER EMAR. PT DENIES PAIN AT THIS TIME. NO ACUTE CHANGES OVERNIGHT. CALL LIGHT WITHIN REACH, WILL ENDORSE CARE TO AM NURSE.
[2020-06-05 07:15] LABS: BASOPHIL % 0.5 % (0-2); PLATELET COUNT 360 x10^3mcL (130-400)
--- NOTE | 2020-06-05 07:15 | NUR ---
RECEIVED PATIENT FROM OUTGOING NURSE, ALERT AND ORIENTED X 4, ABLE TO VERBALIZE NEEDS, NO C/O PAIN, LUNG SOUNDS CLEAR ON RA, ABLE TO AMBULATE INDEPENDENTLY, IV IN RAC PATENT, DENIES CHEST PAIN, BOWEL SOUNDS ACTIVE, LAST BM 06/04, SKIN INTACT, PEDAL PULSES STRONG AND EQUAL BILATERALLY, NO EDEMA NOTED, CONTINENT OF BLADDER, PATIENT PLEASANT AND COOPERATIVE
[2020-06-05 07:27] LABS: CALCIUM 9.2 mg/dL (8.5-10.1); CARBON DIOXIDE 23.2 mmol/L (21-32); CHLORIDE SERUM 102 mmol/L (98-107); CREATININE SERUM 0.6 mg/dL (0.6-1.0); GFR1 > 60 mL/min; GLUCOSE SERUM 98 mg/dL (74-106); POTASSIUM SERUM 3.4 mmol/L (3.5-5.1); SODIUM SERUM 138 mmol/L (136-145)
[2020-06-05 07:55] VITALS: BP 109/76
[2020-06-05 08:10] LABS: RED CELL DISTRIBUTION WIDTH 29.7 % (11.5-14.5)
[2020-06-05] MEDS ORDERED: LEV250 PO (11:04)
[2020-06-05] MEDS ORDERED: FLA500 PO (11:12)
[2020-06-05 12:21] VITALS: BP 123/99
[2020-06-05 12:27] VITALS: BP 123/99
--- NOTE | 2020-06-05 14:14 | NUR ---
PATIENT DISCHARGED HOME, ABLE TO AMBULATE AND TRANSFER INDEPENDENTLY, EDUCATION PROVIDED REGARDING DISEASE PROCESS AND NEW MEDICATIONS, PATIENT VERBALIZED UNDERSTANDING, IV DC WITH CATHETER INTACT AND N S/SX OF INFILTRATE
--- NOTE | 2020-06-05 14:46 | NUR ---
Follow up Nutrition Assessment: [address] SAURABH CASTILLO, ADAY 34F Dx: Diverticulitis PMHx: HTN, Afib, s/p mitral valvuloplasty PSHx: mitral valve replacement Labs: K: 3.4L, BUN 5L, H/H: 11.4/35L, (06/01) TG 160H, HDL 36L Meds: Colace, sodium, flagyl, Clover, Levaquin Diet: regular diet PO intake since admission: 63% x 3 meals BMI: 28.5, Bed scale: 139.8lbs Wts: (06/05): IBW: 47.73kg/105lbs, UBW: 150-158lbs per pt; 74.2kg Age: 34 Food Allergies: NKFA Edema: no edema Last BM: 06/03, GI: active BS x 4 quads, ABD soft/tender, pt denies N/V/D Skin: skin intact Armond: 21 Per H and P (06/01), 34 y/o F with PMH of HTN, AFib and prosthetic mitral valve presented to the ED with severe abdominal pain. She states that it started last night and gradually got worsen. Pain is located in her left lower abdomen, radiates to her right side and suprapubic area, 7/10 in intensity. She stated that last dinner was a day before and today morning was able only to eat fruits and drink water. Last BM was yesterday, no blood in it. She denies any chest pain, palpitation, fever, chills, nausea or vomiting, cough or contact with Covid positive patients. Pateint is s/p mitral valve replacment 3 yrs ago and has been on Coumadin for 4 yrs. She has PCP and f/up regularly as well as INR lab by weekly bases. Last admission was at 04/18/2020 for the same symptoms, has been Dx Acute diverticulitis and UTI. She has been at the hospital for 8 days, was on Flagyl and Levoquin. Per patient she had no pain after discharge until yesterday. She is ambulatory at the baseline and no home O2 use. Pt was admitted with dx: acute sigmoid diverticulitis without perforation, h/o HTN, status post mitral valve replacement and h/o Afib, DVT. RD Note (06/03/2020) Pt was seen lying in bed during bedside visit. Per pt, she has constipation, and her last BM was two days ago. Pt on Colace. Pt was advanced to full liquid diet this morning, and she was previously NPO. Per pt, she was slightly hungry for food, and pt denied chewing/swallowing difficulty prior to admission. Pt denied recent weight change, and her usual body weight fluctuate between 150lbs and 158lbs. At home, she takes vitamin C, and she's aware of the interaction between Warfarin and vitamin K for she's on Warfarin at home. Additionally, pt was not on any special diet at home, and she walks 20minutes five times per week as physical activity. Education on fiber was provided to pt. Recommended a low fiber diet during recovery and slowly introduce fiber back to diet when symptoms subside. Written education "Fiber Content of Food" in [place] from [facility] was provided to pt, and pt accepted education. RD note (06/05): per MD note on 06/04 pt is tolerating oral diet, pt denies ABD pain, diet was changed from full liquid to regular yesterday. Pt is being discharged today. Estimated Nutritional Needs Based on adjusted body weight (53kg) Energy: 4563-6982 kcal/day (25-30 kcal/kg for maintenance) Protein: 42-53 g/day (0.8-1 g/kg for maintenance) Fluid: 5158-7145 mL/day (1 mL/kcal) Nutrition Diagnosis: 1. Altered GI function r/t diverticulitis a/e/b pt was admitted with abd pain. Intervention 1. Continue with regular diet as tolerated. Monitor intake and tolerance 2. Recommend a low fiber/low residual diet, if needed. (Pt currently tolerating regular diet) Monitor/Evaluate Goal: PO intake at least 75% of estimated needs (met, ongoing) Monitor: PO intake, Labs, GI function, Body weight F/U in 2-3 days as MR 06/08-
--- NOTE | 2020-06-05 14:46 | NUR ---
Intervention 1. Continue with regular diet as tolerated. Monitor intake and tolerance 2. Recommend a low fiber/low residual diet, if needed. (Pt currently tolerating regular diet)
== END 2020-06-05 14:50 | disposition home or self-care (01) | DRG 244 ==
LOC: ED 12:43 → MU 19:41
PROVIDERS: Specialist; ADMIT Internal Medicine; ATTEND Internal Medicine
DX: K57.32 Diverticulitis of large intestine without perforation or abscess without bleeding (principal); I48.91 Unspecified atrial fibrillation; D64.9 Anemia, unspecified; Z20.828 Contact with and (suspected) exposure to other viral communicable diseases; Z88.0 Allergy status to penicillin; Z88.1 Allergy status to other antibiotic agents; Z95.2 Presence of prosthetic heart valve
CPT/HCPCS: 83880; 84439; G0378; J1885; J1956; J2270; J2405; J2916; J3010; J3490; J7030; Q9966; Q9967

== ENCOUNTER 2020-08-10 10:29 | Emergency (ER) | payer OTHER ==
[~2020-08-10] VITALS: Ht 154.9 cm; Wt 72.6 kg
[~2020-08-10 10:29] MED LIST changes: +LEV250 PO
[2020-08-10 10:45] VITALS: Ht 154.9 cm; Wt 72.6 kg
[2020-08-10 11:32] LABS: BASOPHIL % 0.3 % (0.2-1.3); PLATELET COUNT 303 x10^3mcL (179-408)
[2020-08-10 11:35] LABS: RED CELL DISTRIBUTION WIDTH 15.9 % (12.3-17.7)
[2020-08-10 11:47] LABS: CALCIUM 8.1 mg/dL (8.5-10.1); CARBON DIOXIDE 27.5 mmol/L (21-32); CHLORIDE SERUM 104 mmol/L (98-107); CREATININE SERUM 0.6 mg/dL (0.6-1.0); GFR1 > 60 mL/min; GLUCOSE SERUM 101 mg/dL (74-106); POTASSIUM SERUM 3.6 mmol/L (3.5-5.1); SODIUM SERUM 138 mmol/L (136-145)
[2020-08-10 11:52] LABS: ALBUMIN 3.4 g/dL (3.4-5.0); ALKALINE PHOSPHATASE 86 U/L (46-116); ALT/SGPT 28 U/L (14-59); AST/SGOT 21 U/L (15-37); BILIRUBIN TOTAL 0.4 mg/dL (0.20-1.00); TOTAL PROTEIN, SERUM 6.9 g/dL (6.4-8.2)
[2020-08-10 15:16] VITALS: BP 103/64
== END 2020-08-10 15:16 | disposition home or self-care (01) ==
LOC: ED 10:29
PROVIDERS: Emergency Medicine
DX: N94.6 Dysmenorrhea, unspecified (principal); D64.9 Anemia, unspecified; I48.91 Unspecified atrial fibrillation; Z88.0 Allergy status to penicillin; Z88.1 Allergy status to other antibiotic agents

== ENCOUNTER 2020-08-13 18:34 | Emergency (ER) | payer OTHER ==
[~2020-08-13] VITALS: Ht 154.9 cm; Wt 70.3 kg
[2020-08-13 19:09] VITALS: Ht 154.9 cm; Wt 70.3 kg
[2020-08-13 20:32] LABS: BASOPHIL % 0.1 % (0.2-1.3); PLATELET COUNT 378 x10^3mcL (179-408)
[2020-08-13 20:53] LABS: CALCIUM 8.4 mg/dL (8.5-10.1); CARBON DIOXIDE 26.6 mmol/L (21-32); CHLORIDE SERUM 100 mmol/L (98-107); CREATININE SERUM 0.7 mg/dL (0.6-1.0); GFR1 > 60 mL/min; GLUCOSE SERUM 95 mg/dL (74-106); POTASSIUM SERUM 3.9 mmol/L (3.5-5.1); SODIUM SERUM 133 mmol/L (136-145)
[2020-08-13 20:58] LABS: ALBUMIN 3.4 g/dL (3.4-5.0); ALKALINE PHOSPHATASE 88 U/L (46-116); ALT/SGPT 24 U/L (14-59); AST/SGOT 17 U/L (15-37); BILIRUBIN TOTAL 0.5 mg/dL (0.20-1.00); TOTAL PROTEIN, SERUM 7.5 g/dL (6.4-8.2)
[2020-08-14 00:16] VITALS: BP 102/68
== END 2020-08-14 00:16 | disposition home or self-care (01) ==
LOC: ED 18:34
PROVIDERS: Emergency Medicine
DX: K57.32 Diverticulitis of large intestine without perforation or abscess without bleeding (principal); D50.0 Iron deficiency anemia secondary to blood loss (chronic); I49.9 Cardiac arrhythmia, unspecified; Z79.02 Long term (current) use of antithrombotics/antiplatelets; Z88.0 Allergy status to penicillin; Z88.1 Allergy status to other antibiotic agents
CPT/HCPCS: J1885

== ENCOUNTER 2020-09-06 21:19 | Inpatient (IN) | payer OTHER ==
[~2020-09-06] VITALS: Ht 154.9 cm; Wt 76.0 kg
[2020-09-06 21:31] VITALS: Ht 154.9 cm; Wt 76.0 kg
[2020-09-07 00:03] LABS: BASOPHIL % 0.7 % (0.2-1.3)
[2020-09-07 00:07] LABS: PLATELET COUNT 362 x10^3mcL (179-408)
[2020-09-07 00:13] LABS: CARBON DIOXIDE 26.2 mmol/L (21-32); CHLORIDE SERUM 105 mmol/L (98-107); CREATININE SERUM 0.7 mg/dL (0.6-1.0); GFR1 > 60 mL/min; GLUCOSE SERUM 94 mg/dL (74-106); POTASSIUM SERUM 3.9 mmol/L (3.5-5.1); SODIUM SERUM 140 mmol/L (136-145)
[2020-09-07 00:17] LABS: ALBUMIN 3.6 g/dL (3.4-5.0); ALKALINE PHOSPHATASE 85 U/L (46-116); ALT/SGPT 19 U/L (14-59); AST/SGOT 10 U/L (15-37); BILIRUBIN TOTAL 0.3 mg/dL (0.20-1.00); LIPASE 116 IU/L (73-393); TOTAL PROTEIN, SERUM 7.3 g/dL (6.4-8.2)
[2020-09-07 00:23] LABS: RED CELL DISTRIBUTION WIDTH 21.9 % (12.3-17.7)
[2020-09-07 00:29] LABS: rbc morphology (normal/abnorm) ABNORMAL (NORMAL)
[2020-09-07 01:06] LABS: microscopic required? NO
[2020-09-07 01:44] LABS: urine erythrocyte NEGATIVE (NEGATIVE)
[2020-09-07 02:58] LABS: AMPHETAMINE QUAL UR NONE DETECTED (See below)
[2020-09-07 06:57] VITALS: BP 105/61
[2020-09-07 08:44] VITALS: BP 102/66
[2020-09-07 09:17] LABS: PLATELET COUNT 304 x10^3mcL (179-408)
[2020-09-07 09:18] LABS: RED BLOOD CELLS 3.07 M/mm3 (4.10-5.10)
[2020-09-07 09:23] LABS: CALCIUM 8.6 mg/dL (8.5-10.1); CARBON DIOXIDE 26.6 mmol/L (21-32); CHLORIDE SERUM 107 mmol/L (98-107); CREATININE SERUM 0.5 mg/dL (0.6-1.0); GFR1 > 60 mL/min; GLUCOSE SERUM 89 mg/dL (74-106); POTASSIUM SERUM 3.9 mmol/L (3.5-5.1); SODIUM SERUM 143 mmol/L (136-145)
[2020-09-07 09:31] LABS: RED CELL DISTRIBUTION WIDTH 21.4 % (12.3-17.7)
[2020-09-07 09:41] LABS: TOTAL IRON BINDING CAPACITY 326 ug/dL (250-450)
[2020-09-07 09:45] LABS: IRON 14 ug/dL (50-170)
[2020-09-07 13:08] VITALS: BP 94/62
[2020-09-07 16:45] VITALS: BP 96/60
[2020-09-07 20:45] VITALS: BP 91/47
[2020-09-08 06:03] LABS: CALCIUM 8.7 mg/dL (8.5-10.1); CARBON DIOXIDE 26.8 mmol/L (21-32); CHLORIDE SERUM 106 mmol/L (98-107); CREATININE SERUM 0.6 mg/dL (0.6-1.0); GFR1 > 60 mL/min; GLUCOSE SERUM 93 mg/dL (74-106); MAGNESIUM 2.4 mg/dL (1.8-2.4); PHOSPHOROUS 4.4 mg/dL (2.5-4.9); POTASSIUM SERUM 3.9 mmol/L (3.5-5.1); SODIUM SERUM 140 mmol/L (136-145)
[2020-09-08 06:22] VITALS: BP 95/57
[2020-09-08 06:22] LABS: BASOPHIL % 0.7 % (0.2-1.3); PLATELET COUNT 313 x10^3mcL (179-408)
[2020-09-08 06:23] LABS: RED CELL DISTRIBUTION WIDTH 20.9 % (12.3-17.7); rbc morphology (normal/abnorm) NORMAL (NORMAL)
[2020-09-08 08:23] VITALS: BP 113/80
[2020-09-08 11:58] VITALS: BP 103/72
[2020-09-08 16:34] VITALS: BP 101/62
[2020-09-08 21:16] VITALS: BP 89/59
[2020-09-09 06:15] VITALS: BP 100/61
[2020-09-09 07:12] LABS: BASOPHIL % 0.6 % (0.2-1.3); PLATELET COUNT 328 x10^3mcL (179-408)
[2020-09-09 07:22] LABS: RED CELL DISTRIBUTION WIDTH 21.6 % (12.3-17.7)
[2020-09-09 07:35] VITALS: BP 112/69
[2020-09-09 07:54] LABS: CALCIUM 8.7 mg/dL (8.5-10.1); CARBON DIOXIDE 25.7 mmol/L (21-32); CHLORIDE SERUM 105 mmol/L (98-107); CREATININE SERUM 0.6 mg/dL (0.6-1.0); GFR1 > 60 mL/min; GLUCOSE SERUM 96 mg/dL (74-106); MAGNESIUM 2.3 mg/dL (1.8-2.4); PHOSPHOROUS 4.2 mg/dL (2.5-4.9); POTASSIUM SERUM 3.9 mmol/L (3.5-5.1); SODIUM SERUM 140 mmol/L (136-145)
[2020-09-09 12:30] VITALS: BP 99/69
[2020-09-09 16:10] VITALS: BP 104/72
[2020-09-09 20:25] VITALS: BP 94/65
[2020-09-10 06:21] VITALS: BP 92/65
[2020-09-10 07:50] LABS: BASOPHIL % 0.6 % (0.2-1.3); PLATELET COUNT 318 x10^3mcL (179-408)
[2020-09-10 08:07] LABS: RED CELL DISTRIBUTION WIDTH 21.5 % (12.3-17.7)
[2020-09-10 08:40] VITALS: BP 111/74
[2020-09-10 12:13] VITALS: BP 99/70
[2020-09-10 16:12] VITALS: BP 104/73
[2020-09-10 20:47] VITALS: BP 100/65
[2020-09-11 04:59] VITALS: BP 95/57
[2020-09-11 06:30] LABS: BASOPHIL % 0.6 % (0.2-1.3); PLATELET COUNT 322 x10^3mcL (179-408)
[2020-09-11 06:55] LABS: RED CELL DISTRIBUTION WIDTH 22.2 % (12.3-17.7)
[2020-09-11 09:13] VITALS: BP 98/65
[2020-09-11 12:39] VITALS: BP 97/71
[2020-09-11 13:08] VITALS: BP 97/71
[2020-09-11 16:25] VITALS: BP 98/73
== END 2020-09-11 18:33 | disposition home or self-care (01) | DRG 241 ==
LOC: ED 21:19 → MU 09-07 02:10 → DU 09-08 16:59 → MU 09-10 17:07
PROVIDERS: Emergency Medicine; Family Medicine; ADMIT Internal Medicine; ATTEND Internal Medicine
PROC: 30233N1 Transfusion of Nonautologous Red Blood Cells into Peripheral Vein, Percutaneous Approach (ICD-10-PCS; principal; 2020-09-07)
DX: K25.9 Gastric ulcer, unspecified as acute or chronic, without hemorrhage or perforation (principal); D62 Acute posthemorrhagic anemia; I48.91 Unspecified atrial fibrillation; K57.92 Diverticulitis of intestine, part unspecified, without perforation or abscess without bleeding; N92.0 Excessive and frequent menstruation with regular cycle; Z20.822 Contact with and (suspected) exposure to COVID-19; I34.1 Nonrheumatic mitral (valve) prolapse; Z95.4 Presence of other heart-valve replacement; Z79.899 Other long term (current) drug therapy; Z79.01 Long term (current) use of anticoagulants; Z79.891 Long term (current) use of opiate analgesic; Z88.5 Allergy status to narcotic agent; Z88.8 Allergy status to other drugs, medicaments and biological substances; Z79.82 Long term (current) use of aspirin; Z88.0 Allergy status to penicillin
CPT/HCPCS: 83880; C9113; G0378; J1650; J1885; J2405; J7050; P9016